=== PATIENT | male | born 1980 | race Caucasian/White ===

== ENCOUNTER 2021-12-14 22:41 | Inpatient (IN) | payer SELFPAY ==
[2021-12-14] MEDS ORDERED: ONDANSETRON 4 MG/2 ML VIAL ONE (23:36)
[2021-12-14] MEDS ORDERED: NA CHLORIDE 0.9% 500 ML ONE (23:37)
[2021-12-14] MEDS ORDERED: NA CHLORIDE 0.9% 2,000 ML ONE (23:37)
[2021-12-14] MEDS ORDERED: NA CHLORIDE 0.9% 250 ML ONE (23:37)
[2021-12-14] MEDS ORDERED: PANTOPRAZOLE 40 MG INJ ONE (23:37)
[2021-12-14] MEDS ORDERED: OCTREOTIDE ACETATE 100 MCG/ML ONE (23:38)
[2021-12-14] MEDS ORDERED: OCTREOTIDE ACETATE 500 MCG/ML ONE (23:40)
[2021-12-14 23:56] LABS: Protime INR 1.36
[2021-12-14 23:59] LABS: Absolute Lymphocytes (CBC) 1.4 K/uL (0.7-4.9); Hematocrit 36.1 % (39.6-49.0); Lymphocytes % 15.8 % (15.3-44.8); MCV 93.8 fL (80-100); MPV 12.2 fL (7.6-11.3); RBC Red Blood Cell Count 3.85 M/uL (4.33-5.43)
[2021-12-15 00:07] LABS: Albumin 3.3 g/dL (3.4-5.0); Bilirubin Direct 2.1 mg/dL (0-0.2); Bilirubin Total 3.1 mg/dL (0.2-1.0); Magnesium 2.3 mg/dL (1.8-2.4); Potassium 4.3 mmol/L (3.5-5.1); Protein, Total 7.2 g/dL (6.4-8.2); Troponin High Sensitivity 11.7 pg/mL (<58.9)
[2021-12-15 01:00] LABS: Basophilic Stippling 1+; Blood Morphology Comment NOTED (NOT SEEN); Polychromasia 1+; White Blood Cell Scan OK (OK)
[2021-12-15 01:01] LABS: Platelet Estimate DECR
--- NOTE | 2021-12-15 01:09 | ER ---
Nurse's Notes [facility] Name: Adrian aRngel Age: 41 yrs Sex: Male : 1980 Arrival Date: 12/14/2021 Time: 22:44 Bed 7 Private MD: Diagnosis: GI Bleed/ Gastrointestinal hemorrhage, unspecified;Hematemesis;Alcohol abuse with intoxication Presentation: 12/14 22:54 Chief complaint: Patient states: I started to vomiting at my house and I noted some ll3 blood, states "I'm a drinker", denies nausea, states started vomiting from coughing, denies pain at this time, states drinks several beers and mixed drinks everyday. Coronavirus screen: Vaccine status: Patient reports being unvaccinated. Ebola Screen: No symptoms or risks identified at this time. Initial Sepsis Screen: Does the patient meet any 2 criteria? HR > 90 bpm. No. Patient's initial sepsis screen is negative. Does the patient have a suspected source of infection? No. Patient's initial sepsis screen is negative. Risk Assessment: Do you want to hurt yourself or someone else? Patient reports no desire to harm self or others. Onset of symptoms was December 14, 2021 at 19:00. 22:54 Method Of Arrival: Ambulatory ll3 22:54 Acuity: JEANETH 3 ll3 Triage Assessment: 22:58 General: Appears comfortable, Behavior is calm, cooperative. Pain: Denies pain. EENT: ll3 Reports States throat was sore after vomiting, denies pain at this time. Neuro: Level of Consciousness is awake, alert, obeys commands, Oriented to person, place, time, situation. GI: Reports vomiting, Patient currently denies nausea. Derm: Skin is pink, warm \\T\\ dry. Historical: - Allergies: 22:58 No Known Allergies; ll3 - Home Meds: 22:58 None [Active]; ll3 - PMHx: 22:58 None; ll3 - PSHx: 22:58 None; ll3 - Immunization history:: Client reports having NOT received the Covid vaccine. - Social history:: Smoking status: Patient reports the use of cigarette tobacco products, 5 per day. Screenin:27 Abuse screen: Denies threats or abuse. Denies injuries from another. Nutritional ha1 screening: No deficits noted. Tuberculosis screening: No symptoms or risk factors identified. Fall Risk None identified. Assessment: 23:15 General: Appears uncomfortable, Behavior is calm, cooperative. Pain: Denies pain. ha1 Neuro: Oriented to person, place, time, situation, Gait is steady. Cardiovascular: Patient's skin is warm and dry. Rhythm is sinus tachycardia. Respiratory: Airway is patent Trachea midline Respiratory effort is even, unlabored, Respiratory pattern is regular, symmetrical. GI: Abdomen is flat, non-distended, Bowel sounds present X 4 quads. Reports vomiting red blood. : No signs and/or symptoms were reported regarding the genitourinary system. Derm: Skin is pink, warm \\T\\ dry. Musculoskeletal: Circulation, motion, and sensation intact. Range of motion: intact in all extremities. 12/15 00:15 Reassessment: Patient and/or family updated on plan of care and expected duration. Pain ha1 level reassessed. Patient is alert, oriented x 3, equal unlabored respirations, skin warm/dry/pink. 01:10 Reassessment: Patient and/or family updated on plan of care and expected duration. Pain ha1 level reassessed. Patient is alert, oriented x 3, equal unlabored respirations, skin warm/dry/pink. 02:29 Reassessment: Patient and/or family updated on plan of care and expected duration. Pain ha1 level reassessed. Patient is alert, oriented x 3, equal unlabored respirations, skin warm/dry/pink. Patient denies pain at this time. 02:52 General: pt reports nausea has improved. no complaints or concerns at thing time . as6 Vital Signs: 12/14 22:54 BP 138 / 104; Pulse 140; Resp 19; Temp 99.0(O); Pulse Ox 99% on R/A; Weight 92.99 kg ll3 (R); Height 6 ft. 1 in. (185.42 cm) (R); Pain 0/10; 23:15 BP 138 / 104; Pulse 113; Resp 20; Pulse Ox 100% on R/A; ha1 12/15 01:14 BP 157 / 101; Pulse 109; Resp 19 S; Pulse Ox 100% on R/A; as6 02:00 BP 155 / 95; Pulse 120; Resp 18 S; Pulse Ox 99% on R/A; ha1 02:53 BP 141 / 91; Pulse 116; Resp 19 S; Pulse Ox 99% on R/A; as6 12/14 22:54 Body Mass Index 27.05 (92.99 kg, 185.42 cm) ll3 ED Course: 12/14 22:44 Patient arrived in ED. ag3 22:58 Triage completed. ll3 22:58 Arm band placed on Patient placed in an exam room, on a stretcher, on pulse oximetry. ll3 23:00 Micah Infante PA is PHCP. cp 23:00 Esthela Hooper MD is Attending Physician. cp 23:15 Inserted saline lock: 20 gauge in right antecubital area, using aseptic technique. ha1 Blood collected. 23:18 Sherman Strong, EFE is Primary Nurse. as6 23:30 Inserted saline lock: 20 gauge in left antecubital area, using aseptic technique. ha1 12/15 01:08 Denny Neal MD is Hospitalizing Provider. cp 02:52 Placed in gown. Bed in low position. Call light in reach. Side rails up X 1. as6 03:33 No provider procedures requiring assistance completed. Patient admitted, IV remains in ha1 place. 07:41 Primary Nurse role handed off by Sherman Strong, EFE bp 07:41 Kiet Zepeda, EFE is Primary Nurse. bp Administered Medications: 00:17 Drug: Octreotide 50 mcg Route: IV; Rate: calculated rate; Site: left antecubital; ha1 07:40 Follow up: IV Status: Completed infusion bp 00:17 Drug: Zofran (Ondansetron) 4 mg Route: IVP; Site: right antecubital; ha1 01:30 Follow up: Response: No adverse reaction ha1 00:17 Drug: ProTONIX (pantoprazole) 8 mg/hr Route: IV; Rate: 25 ml/hr; Site: right ha1 antecubital; 07:39 Follow up: IV Status: Infusion continued upon admission bp 00:17 Drug: ProTONIX (pantoprazole) 40 mg Route: IVP; Site: right antecubital; ha1 07:39 Follow up: Response: No adverse reaction bp 00:18 Drug: NS 0.9% 1000 ml Route: IV; Rate: 1 bolus; Site: right antecubital; ha1 07:41 Follow up: IV Status: Completed infusion; IV Intake: 1000ml bp 00:18 Drug: NS 0.9% 1000 ml Route: IV; Rate: 1 bolus; Site: left antecubital; ha1 03:37 Follow up: Response: No adverse reaction; IV Status: Completed infusion; IV Intake: ha1 1000ml 00:18 Drug: Octreotide Infusion (50 mcg/hr) - (Octreotide 500 mcg, NS 0.9% 500 ml) Route: IV; ha1 Rate: 50 ml/hr; Site: left antecubital; 07:40 Follow up: IV Status: Infusion continued upon admission bp Medication: 03:36 VIS not applicable for this client. ha1 Intake: 03:37 IV: 1000ml; Total: 1000ml. ha1 07:41 IV: 1000ml; Total: 2000ml. bp Outcome: 01:09 Decision to Hospitalize by Provider. cp 03:35 Admitted to ICU ha1 03:35 Condition: stable 03:35 Instructed on the need for admit. 10:20 Patient left the ED. iw Signatures: Dariana Antoine RN RN iw Micah Infante PA PA cp Kiet Zepeda, RN RN Cora Richard Ashby, RN RN as6 Brown Miranda RN RN 3 Aleisha Lambert RN RN 1
--- NOTE | 2021-12-15 01:10 | EDPHYS ---
Physician Documentation [facility] Name: Adrian Rangel Age: 41 yrs Sex: Male : 1980 Arrival Date: 12/14/2021 Time: 22:44 Bed 7 Private MD: ED Physician Esthela Hooper HPI: 12/14 23:14 This 41 yrs old Male presents to ER via Ambulatory with complaints of Vomiting. cp 23:14 The patient presents to the emergency department with vomiting, that is continuous, cp described as bright red blood. Onset: The symptoms/episode began/occurred about 1900. Possible causes: daily ETOH use. 23:14 Associated signs and symptoms: Pertinent positives: GI bleeding, nausea, vomiting, cp Pertinent negatives: abdominal pain, constipation, diarrhea, fever. 23:14 Severity of symptoms: in the emergency department the symptoms are unchanged despite cp home interventions. Historical: - Allergies: 22:58 No Known Allergies; ll3 - Home Meds: 22:58 None [Active]; ll3 - PMHx: 22:58 None; ll3 - PSHx: 22:58 None; ll3 - Immunization history:: Client reports having NOT received the Covid vaccine. - Social history:: Smoking status: Patient reports the use of cigarette tobacco products, 5 per day. ROS: 23:20 Constitutional: Negative for body aches, chills, fever, poor PO intake. cp 23:20 Cardiovascular: Negative for chest pain, edema, palpitations. cp 23:20 Respiratory: Negative for cough, shortness of breath, wheezing. 23:20 Eyes: Negative for injury, pain, redness, and discharge. cp 23:20 ENT: Negative for drainage from ear(s), ear pain, sore throat, difficulty swallowing, difficulty handling secretions. 23:20 Abdomen/GI: Positive for hematemesis, Negative for abdominal pain. 23:20 : Negative for urinary symptoms. 23:20 Neuro: Negative for altered mental status, dizziness, headache, loss of consciousness, syncope, weakness. 23:20 All other systems are negative. cp Exam: 23:20 Constitutional: The patient appears in no acute distress, alert, awake, cp non-diaphoretic, non-toxic, well developed, well nourished. 23:20 Head/Face: Normocephalic, atraumatic. cp 23:20 Eyes: Periorbital structures: appear normal, Conjunctiva: normal, no exudate, no injection, Sclera: no appreciated abnormality, Lids and lashes: appear normal, bilaterally. 23:20 ENT: External ear(s): are unremarkable, Nose: is normal, Mouth: Lips: moist, Oral mucosa: pink and intact, moist, Posterior pharynx: Airway: no evidence of obstruction, patent, swelling, is not appreciated, erythema, is not appreciated, exudate, is not appreciated. 23:20 Neck: ROM/movement: is normal, is supple, without pain, no range of motions limitations. 23:20 Chest/axilla: Inspection: normal. 23:20 Cardiovascular: Rate: tachycardic, Rhythm: regular, Edema: is not appreciated, JVD: is not appreciated. 23:20 Respiratory: the patient does not display signs of respiratory distress, Respirations: normal, no use of accessory muscles, no retractions, labored breathing, is not present, Breath sounds: are clear throughout, no decreased breath sounds, no stridor, no wheezing. 23:20 Abdomen/GI: Inspection: abdomen appears normal, Bowel sounds: active, all quadrants, Palpation: abdomen is soft and non-tender, in all quadrants, Rectal exam: Stool: brown, guaiac negative. 23:20 Back: pain, is absent, ROM is normal. 23:20 Neuro: Orientation: to person, place \T\ time. Mentation: is normal, Cerebellar function: is grossly normal, Motor: moves all fours, strength is normal, Sensation: is normal. 23:47 ECG was reviewed by the Attending Physician. cp Vital Signs: 22:54 BP 138 / 104; Pulse 140; Resp 19; Temp 99.0(O); Pulse Ox 99% on R/A; Weight 92.99 kg ll3 (R); Height 6 ft. 1 in. (185.42 cm) (R); Pain 0/10; 23:15 BP 138 / 104; Pulse 113; Resp 20; Pulse Ox 100% on R/A; ha1 10/12 01:14 BP 157 / 101; Pulse 109; Resp 19 S; Pulse Ox 100% on R/A; as6 02:00 BP 155 / 95; Pulse 120; Resp 18 S; Pulse Ox 99% on R/A; ha1 02:53 BP 141 / 91; Pulse 116; Resp 19 S; Pulse Ox 99% on R/A; as6 12/14 22:54 Body Mass Index 27.05 (92.99 kg, 185.42 cm) ll3 MDM: 12/14 23:01 Patient medically screened. cp 12/15 00:45 Data reviewed: vital signs, nurses notes, lab test result(s), EKG, radiologic studies, cp plain films, I have discussed the patient's presentation/case with the attending Emergency Department Physician; and as a result, I will admit patient. 00:45 Test interpretation: by ED physician or midlevel provider: ECG, plain radiologic cp studies. Counseling: I had a detailed discussion with the patient and/or guardian regarding: the historical points, exam findings, and any diagnostic results supporting the discharge/admit diagnosis, lab results, radiology results, the need for further work-up and treatment in the hospital. Response to treatment: the patient's symptoms have markedly improved after treatment. Physician consultation: Hossein ROWAN was contacted at 00:45, regarding admission. 00:47 Physician consultation: Damian Palomo MD was called at 00:47, regarding consult, cp patient's condition, left msg on voicemail. 12/14 23:11 Order name: Basic Metabolic Panel cp 12/14 23:11 Order name: CBC with Diff cp 12/14 23:11 Order name: LFT's cp 12/14 23:11 Order name: Magnesium cp 12/14 23:11 Order name: PT-INR cp 12/14 23:11 Order name: Troponin HS cp 12/14 23:11 Order name: Ptt, Activated cp 12/14 23:56 Order name: Protime (+INR); Complete Time: 00:06 EDMS 12/15 00:07 Interpretation: Abnormal: PT 15.1. cp 12/14 23:56 Order name: PTT, Activated Partial Thromb; Complete Time: 00:06 EDMS 12/15 00:01 Order name: CBC with Automated Diff; Complete Time: 01:35 EDMS 12/15 00:07 Interpretation: Normal except: RBC 3.85; HGB 12.2; HCT 36.1; PLT 62; MPV 12.2. cp 12/15 00:06 Order name: ETOH Level cp 12/15 00:08 Order name: Basic Metabolic Panel; Complete Time: 00:41 EDMS 12/15 00:41 Interpretation: Normal except: GLUC 139. cp 12/15 00:08 Order name: Liver (Hepatic) Function; Complete Time: 00:41 EDMS 12/15 00:41 Interpretation: Normal except: AST 197; ALK 196; BILIT 3.1; BILID 2.1; ALB 3.3; GLOB cp 3.9; A/G 0.8. 10 00:08 Order name: Troponin High Sensitivity; Complete Time: 00:41 EDMS 12/14 23:11 Order name: XRAY Chest (1 view) cp 12/15 00:08 Order name: Magnesium; Complete Time: 00:41 EDMS 12/15 00:34 Order name: Alcohol Serum/Plasma; Complete Time: 00:41 EDMS 12/15 00:43 Interpretation: ETOH 141; Reviewed. cp 12/15 00:42 Order name: CT Abd/Pelvis - IV Contrast Only cp 12/15 01:01 Order name: CBC Smear Scan; Complete Time: 01:35 EDMS 12/15 01:25 Order name: SARS RAPID ha1 12/15 02:15 Order name: SARS-COV-2 Antigen Rapid; Complete Time: 02:58 EDMS 12/15 02:57 Order name: CT; Complete Time: 02:58 EDMS 12/15 05:17 Order name: Protime (+INR); Complete Time: 05:29 EDMS 12/15 05:18 Order name: CBC with Automated Diff; Complete Time: 05:29 EDMS 12/15 05:37 Order name: Comprehensive Metabolic Panel; Complete Time: 07:10 EDMS 12/15 05:37 Order name: Lipid Profile; Complete Time: 07:10 EDMS 12/15 05:37 Order name: Lipase; Complete Time: 07:10 EDMS 12/14 23:11 Order name: EKG; Complete Time: 23:12 12/14 23:11 Order name: Cardiac monitoring; Complete Time: 23:41 12/14 23:11 Order name: EKG - Nurse/Tech; Complete Time: 23:41 12/14 23:11 Order name: IV Saline Lock; Complete Time: 23:29 12/14 23:11 Order name: Labs collected and sent; Complete Time: 23:29 12/14 23:11 Order name: O2 Per Protocol; Complete Time: 23:29 cp 12/14 23:11 Order name: O2 Sat Monitoring; Complete Time: 23:29 cp 12/15 01:36 Order name: NPO; Complete Time: 01:43 la1 EC/11 23:47 Rate is 130 beats/min. Rhythm is regular. CA interval is normal. QRS interval is cp normal. QT interval is normal. T waves are Inverted in leads III, aVR. Interpreted by me. Reviewed by me. Administered Medications: 12/15 00:17 Drug: Octreotide 50 mcg Route: IV; Rate: calculated rate; Site: left antecubital; ha1 07:40 Follow up: IV Status: Completed infusion bp 00:17 Drug: Zofran (Ondansetron) 4 mg Route: IVP; Site: right antecubital; ha1 01:30 Follow up: Response: No adverse reaction ha1 00:17 Drug: ProTONIX (pantoprazole) 8 mg/hr Route: IV; Rate: 25 ml/hr; Site: right ha1 antecubital; 07:39 Follow up: IV Status: Infusion continued upon admission bp 00:17 Drug: ProTONIX (pantoprazole) 40 mg Route: IVP; Site: right antecubital; ha1 07:39 Follow up: Response: No adverse reaction bp 00:18 Drug: NS 0.9% 1000 ml Route: IV; Rate: 1 bolus; Site: right antecubital; ha1 07:41 Follow up: IV Status: Completed infusion; IV Intake: 1000ml bp 00:18 Drug: NS 0.9% 1000 ml Route: IV; Rate: 1 bolus; Site: left antecubital; ha1 03:37 Follow up: Response: No adverse reaction; IV Status: Completed infusion; IV Intake: ha1 1000ml 00:18 Drug: Octreotide Infusion (50 mcg/hr) - (Octreotide 500 mcg, NS 0.9% 500 ml) Route: IV; ha1 Rate: 50 ml/hr; Site: left antecubital; 07:40 Follow up: IV Status: Infusion continued upon admission bp Disposition Summary: 12/15/21 01:09 Hospitalization Ordered Hospitalization Status: Inpatient Admission cp Provider: Denny Neal cp Condition: Stable cp Problem: new cp Symptoms: have improved cp Bed/Room Type: Standard cp Location: Intensive Care Unit(12/15/21 10:06) bd Room Assignment: 7-(12/15/21 10:06) bd Diagnosis - GI Bleed/ Gastrointestinal hemorrhage, unspecified cp - Hematemesis cp - Alcohol abuse with intoxication cp Forms: - Medication Reconciliation Form cp - SBAR form cp Signatures: Dispatcher [employer] EDGinny Cline Martha RN RN mw Hossein Delgado, NEONATAL SOCIAL WORKER-C NEONATAL SOCIAL WORKER-Cla1 Micah Infante PA PA cp Esthela Hooper MD MD sp3 Brown Miranda RN RN ll3 Aleisha Lambert RN RN ha1 Kiet Zepeda RN bp Corrections: (The following items were deleted from the chart) 01:34 01:09 Telemetry/MedSurg (Inpatient) cp la1 01:34 01:09 cp la1 02:25 01:34 Intensive Care Unit la1 mw 02:25 01:34 la1 mw 10:06 02:25 [facility] ER HOLD mw bd 10:06 02:25 ERHOLD- mw bd
[2021-12-15 02:14] LABS: SARS-CoV-2 Antigen Rapid Res Negative (Negative)
--- NOTE | 2021-12-15 02:56 | RAD REPORT ---
EXAM DESCRIPTION: CT - Abdomen Pelvis W Contrast - 12/15/2021 1:18 am CLINICAL HISTORY: hematemesis COMPARISON: <Comparisons> TECHNIQUE: Biphasic, helical CT imaging of the abdomen and pelvis was performed following 100 ml non -ionic IV contrast. No oral contrast administered. All CT scans are performed using dose optimization technique as appropriate and may include automated exposure control or mA/KV adjustment according to patient size. FINDINGS: No suspicious findings in the lung bases. Hepatomegaly is present with a mottled enhancement of the liver parenchyma. Capsule nodularity is pre sent. No portal vein thrombus. Lean is prominent. Granulomatous calcification present in the spleen. No solid mass of the pancreas. Trace amount of stranding and edema seen in the peripancreatic and. Mu lti stone cholelithiasis seen. Gallbladder wall is slightly thickened or edematous. No biliary tree d ilatation. Symmetric renal function is seen with no hydronephrosis or suspicious renal mass. No pyelonephritis o r acute parenchymal process. No bladder abnormalities. No adrenal abnormalities. Distal esophagus is not grossly abnormal. Food, fluid and hemorrhagic material is present filling the lumen of the stomach. A specific gastric mass is not identifiable. No gastric wall pneumatosis confi rmed. Garcia of the duodenum mildly edematous without dilatation. Small bowel loops are not dilated. N o appendicitis findings. Colon wall edema is present. Focal colon mass is not seen. No free air or pneumatosis. Small amount of ascites is present. Numerous varices seen in the upper ab domen. No hernia, mass or bulky lymphadenopathy. No suspicious bony findings. A 6 x 4 centimeter low-density area present right-side at the medial margin of the the gluteal muscul ature. Hematoma is favored. IMPRESSION: Food, fluid and hemorrhagic material are present in the lumen of stomach. Active extrava sation into the lumen of the stomach is not identified. Specific gastric wall mass or varix is not di stinguishable. Hepatomegaly is present with liver capsule nodularity and diffusely mottled enhancement pattern throu ghout the liver parenchyma. Diffuse hepatic parenchymal disease assessment which could be cirrhosis come hepatitis or other diffuse hepatic parenchymal disease. No focal mass confirmed. Mild pancreatitis changes are present. Small amount of ascites. Numerous varices are seen in the abdomen. Multi stone cholelithiasis without biliary dilatation. Mild circumferential wall thickening throughout the colon and duodenum suspected to be edema secondar y to metabolic or electrolyte abnormalities. Infectious or inflammatory colitis are possible.
[2021-12-15] MEDS ORDERED: OCTREOTIDE 500 MCG in NA CHLORIDE 0.9% 500 ML IV SCH (03:13)
[2021-12-15] MEDS ORDERED: PANTOPRAZOLE INJ 80 MG in NA CHLORIDE 0.9% 250 ML IV SCH (03:13)
[2021-12-15] MEDS ORDERED: D5 0.45 NS 1,000 ML IV SCH (03:13)
--- NOTE | 2021-12-15 03:16 | P.HP ---
Certification for Inpatient Patient admitted to: Inpatient With expected LOS: >2 Midnights Patient will require the following post-hospital care: None Practitioner: I am a practitioner with admitting privileges, knowledge of patient current condition, hospital course, and medical plan of care. Services: Services provided to patient in accordance with Admission requirements found in Title 42 Section 412.3 of the Code of Federal Regulations <Hossein Delgado - Last Filed: 12/15/21 03:07> Patient History Date of Service: 12/15/21 Reason for admission: Hematemesis History of Present Illness: 41-year-old male with no known chronic health conditions presents to the emergency department for hematemesis. He reports that he has been a daily drinker since he was a teenager he typically drinks between 2-6 beers today followed by 3 "stiff" whiskey drinks in the evenings. Yesterday evening he had an episode of vomiting, the first 2 times that he threw up it was the stomach contents but after the second time he vomited he began vomiting bright red blood by itself. About 2 hours later he had another episode of vomiting which was a mixture of gastric contents and blood. He denies similar episodes in the past had no known history of liver disease. He was evaluated in the emergency department his labs were significant for initial hemoglobin of 12.2 hematocrit of 36.1 platelets 62 INR 1.36 PT 15 point 1T bili 3.1D bili 2.1 AST 197 ALT 73 alk phos 196 EtOH serum level 141. In the emergency department he was given 3 L of IV fluids and started on a Protonix as well as octreotide infusion. A CT scan was performed of the abdomen pelvis with IV contrast which revealed food, fluid and hemorrhagic material present in the lumen of the stomach. Active extravasation into the lumen of the stomach is not identified. Specific gastric wall mass or varix is not distinguishable. Hepatomegaly is present with liver capsule nodularity and diffusely mild enhancement pattern throughout the liver parenchyma. Diffuse hepatic parenchymal disease assessment which could be cirrhosis, hepatitis or other diffuse hepatic parenchymal disease. No focal mass confirmed. Mild pancreatic changes are present small amount of ascites numerous varices seen in the abdomen. Multi stone cholelithiasis without biliary tree dilatation. Mild circumferential wall thickening throughout the colon and duodenum suspect to be edema secondary to metabolic or electrolyte abnormalities. Infectious or inflammatory colitis are possible. ED provider reached out to GI on-call prior to admission, wishes to admit patient for hematemesis, suspected alcoholic hepatitis/cirrhosis of the liver. 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 - Family History Family History: Reviewed- Non-Contributory - Social History Smoking Status: Current every day smoker Counseled patient to stop smoking for: less than 10 minutes Smoking therapy provided: No (Patient declined) Alcohol use: Yes CD- Drugs: No Caffeine use: Yes Place of Residence: Home <Hossein Delgado - Last Filed: 12/15/21 03:07> Date of Service: 12/15/21 <Denny Neal - Last Filed: 12/15/21 14:09> Review of Systems 10-point ROS is otherwise unremarkable Gastrointestinal: Nausea, Vomiting, Hematochezia, As per HPI <Hossein Delgado - Last Filed: 12/15/21 03:07> Physical Examination - Physical Exam General: Alert, In no apparent distress, Oriented x3 HEENT: Atraumatic, PERRLA, Mucous membr. moist/pink, EOMI, Scleral icterus Neck: Supple, 2+ carotid pulse no bruit, No LAD, Without JVD or thyroid abnormality Respiratory: Clear to auscultation bilaterally, Normal air movement Cardiovascular: Regular rate/rhythm, Normal S1 S2 Gastrointestinal: Normal bowel sounds, Soft and benign, No tenderness, No masses, No rebound, No guarding Musculoskeletal: No tenderness Integumentary: No rashes Neurological: Normal speech, Normal strength at 5/5 x4 extr, Normal tone, Normal affect - Studies Laboratory Data (last 24 hrs) 12/14/21 23:25: PT 15.1 H, INR 1.36, APTT 36.4 12/14/21 23:25: WBC 9.10, Hgb 12.2 L, Hct 36.1 L, Plt Count 62 L 12/14/21 23:25: Sodium 137, Potassium 4.3, BUN 17, Creatinine 0.74, Glucose 139 H, Magnesium 2.3, Total Bilirubin 3.1 H, AST 197 H, ALT 73, Alkaline Phosphatase 196 H <Hossein Delgado - Last Filed: 12/15/21 03:07> - Studies Laboratory Data (last 24 hrs) 12/14/21 23:25: PT 15.1 H, INR 1.36, APTT 36.4 12/14/21 23:25: WBC 9.10, Hgb 12.2 L, Hct 36.1 L, Plt Count 62 L 12/14/21 23:25: Sodium 137, Potassium 4.3, BUN 17, Creatinine 0.74, Glucose 139 H, Magnesium 2.3, Total Bilirubin 3.1 H, AST 197 H, ALT 73, Alkaline Phosphatase 196 H <Denny Neal - Last Filed: 12/15/21 14:09> Assessment and Plan - Plan Assessment: Hematemesis Suspected alcoholic hepatitis/alcoholic cirrhosis of liver Thrombocytopenia related to above Alcohol use disorder Plan: Hematemesis: N.p.o. differentials include Herlinda-Frey tear, esophageal/gastric varices. Patient with 2 episodes of vomiting both prior to presentation emergency department no further vomiting noted thus far. Patient is normotensive but remains mildly tachycardic with heart rate around 105-110. GI consulted, patient is on Protonix/octreotide drips. Initial hemoglobin 12.2 patient did receive 3 L of IV fluids in the emergency department anticipate some drop in hemoglobin. We will transfuse to maintain hemoglobin greater than 8 as needed. Suspected alcoholic hepatitis/alcoholic cirrhosis of liver: Patient with no previous diagnosis of alcoholic hepatitis or cirrhosis, he has scleral icterus, T bili 3.1, thrombocytopenia as well as elevated AST greater than ALT. Maddrey's discriminant function is 15.1. Acute hepatitis panel also to be sent. Patient counseled extensively on his need for alcohol cessation. Appreciate further input from gastroenterology Thrombocytopenia related to above: SCDs for DVT prophylaxis, monitor platelet c ounts with daily CBC. Alcohol use disorder: Patient was counseled extensively on need for alcohol cessation. His last drink was yesterday afternoon is been a daily drinker since he was a teenager he is at high risk for alcohol withdrawals. Will monitor for signs of alcohol withdrawal closely provide medications as needed. DVT PPX: SCD Code status: Full Discharge Plan: Home Plan to discharge in: 72 Hours - Advance Directives Does patient have a Living Will: No Does patient have a Durable POA for Healthcare: No - Code Status/Comfort Care Code Status Assessed: Yes (Full code) Critical Care: No Time Spent Managing Pts Care (In Minutes): 70 <Hossein Delgado - Last Filed: 12/15/21 03:07> Physician Review: Patient Assessed, Agree with Above Assessment and Plan <Denny Neal - Last Filed: 12/15/21 14:09>
[2021-12-15 05:04] LABS: Absolute Lymphocytes (CBC) 0.9 K/uL (0.7-4.9); Hematocrit 30.8 % (39.6-49.0); MCV 95.9 fL (80-100); MPV 11.9 fL (7.6-11.3); RBC Red Blood Cell Count 3.21 M/uL (4.33-5.43)
[2021-12-15] MEDS ORDERED: D5 0.45 NS 1,000 ML IV ONE (05:15)
[2021-12-15 05:17] LABS: Protime INR 1.43
[2021-12-15] MEDS ORDERED: ONDANSETRON 4 MG/2 ML VIAL IV PRN (05:30)
[2021-12-15 05:32] LABS: Albumin 2.8 g/dL (3.4-5.0); Bilirubin Total 2.9 mg/dL (0.2-1.0); Potassium 4.7 mmol/L (3.5-5.1); Protein, Total 6.1 g/dL (6.4-8.2)
[2021-12-15] MEDS ORDERED: CEFTRIAXONE 2000 MG/VIAL ONE (08:59)
[2021-12-15] MEDS ORDERED: NA CHLORIDE 0.9% 100 ML IV ONE (08:59)
[2021-12-15] MEDS ORDERED: CEFTRIAXONE 1000 MG/VIAL ONE (08:59)
[2021-12-15] MEDS ORDERED: INFLUENZA VACCINE (for 6+ mo) 0.5 ML DOSE IMVAC ONE (09:00)
[2021-12-15] MEDS: CEFTRIAXONE 2,000 MG in NA CHLORIDE 0.9% 100 ML IV SCH (09:00)
[2021-12-15] MEDS: FOLIC ACID 1 MG, MULTIVITAMINS INJ 10 ML, THIAMINE HCL 100 MG in NA CHLORIDE 0.9% 1,000 ML IV SCH (09:00)
[2021-12-15] MEDS ORDERED: LORazepam 2 MG/ML VIAL ONE (09:09)
[2021-12-15] MEDS: OCTREOTIDE 500 MCG in NA CHLORIDE 0.9% 500 ML IV SCH ×2 (10:00→14:54)
[2021-12-15] MEDS: PANTOPRAZOLE INJ 80 MG in NA CHLORIDE 0.9% 250 ML IV SCH ×2 (10:00→17:26)
[2021-12-15] MEDS ORDERED: Ringers Lactate 1,000 ML IV ONE (10:20)
[2021-12-15] MEDS ORDERED: propofoL 200 MG/20 ML VIAL IV ONE ×3 (11:34→12:19)
[2021-12-15] MEDS ORDERED: ONDANSETRON 4 MG/2 ML VIAL ONE ×2 (11:59→12:48)
[2021-12-15] MEDS ORDERED: EPINEPHRINE/PF 1 MG/ML AMP ONE (12:00)
--- NOTE | 2021-12-15 12:33 | ENDO RPT ---
[address], [address] EGD PROCEDURE REPORT EXAM DATE: 12/15/2021 PATIENT NAME: Adrain Rangel MR#: [id number] BIRTHDATE: 1980 ATTENDING: Damian Palomo Dr STATUS: inpatient - [facility] COORDINATOR: Yazmin GUADALUPE, Kayley Hernandez RN, and Verna Theodore INDICATIONS: The patient is a 41 yr old Male here for an EGD due to hematemesis, upper G.I. bleeding, melenic bleeding, and anemia PROCEDURE PERFORMED: EGD with banding MEDICATIONS: Per Anesthesia. TOPICAL ANESTHETIC: none CONSENT: The patient understands the risks and benefits of the procedure and understands that these risks include, but are not limited to: sedation, allergic reaction, infection, perforation and/or bleeding. Alternative means of evaluation and treatment include, among others: physical exam, x-rays, and/or surgical intervention. The patient elects to proceed with this endoscopic procedure. DESCRIPTION OF PROCEDURE: During intra-op preparation period all mechanical medical equipment was checked for proper function. Hand hygiene and appropriate measures for infection prevention was taken. Procedure, possible complications, and alternatives including but not limited to the possibility of bleeding, perforation, tear, infection, sepsis, need for surgery, need for blood transfusion, and anesthesia related complications were explained to the patient. After the risks, benefits and alternatives of the procedure were thoroughly explained, Informed consent was verified, confirmed and timeout was successfully executed by the treatment team. The patient was placed in the left lateral position. The patient was anesthetized with topical anesthesia. Through the anesthetized oropharyngeal area, the scope was passed without any difficulty. The [id number] ([id number]) endoscope was introduced through the mouth and advanced to the second portion of the duodenum. Retroflexed views revealed no abnormalities. The gastroscope was then slowly withdrawn and removed. Two columns of grade II varices were found in the lower esophagus. Esophageal banding was performed X3. Large of amount of congelled bright red blood clot was found in the body of the stomach. Nodular mucosa was found in the body of the stomach. ADVERSE EVENTS: There were no complications. IMPRESSIONS: 1. Two columns of grade II varices in the lower esophagus, s/p banding X3 stomach 3. Nodular mucosa in the body of the stomach RECOMMENDATIONS: 1. continue IV Octreotide 3. Cefriaxone IV 4. goal SBP < 110 REPEAT EXAM: Return in 3 week(s) for EGD. Damian Palomo Dr eSigned: Damian Palomo Dr 12/15/2021 12:32 PM cc: CPT CODES: ICD9 CODES: PATIENT NAME: Adrian Rangel MR#: [id number]
--- NOTE | 2021-12-15 13:38 | RAD REPORT ---
EXAM DESCRIPTION: XR Chest, 1 View CLINICAL HISTORY: VOMITING TECHNIQUE: Frontal view of the chest. COMPARISON: No relevant prior studies available. FINDINGS: Lungs: Unremarkable. No consolidation. Pleural space: Unremarkable. No pneumothorax. Heart: Unremarkable. No cardiomegaly. Mediastinum: Unremarkable. Bones/joints: Unremarkable. IMPRESSION: No acute disease. Electronically signed by: Luciana Martinez MD 12/15/2021 12:12 AM CDT Due to temporary technical issues with the PACS/Fluency reporting system, reports are being signed by the in house radiologists without review as a courtesy to insure prompt reporting. The interpreting radiologist is fully responsible for the content of the report.
--- NOTE | 2021-12-15 14:37 | CON ---
Date of Consultation: 12/15/2021 Reason For Consultation: Hematemesis. History Of Present Illness: Patient is a 41-year-old alcoholic cirrhotic, who presented to hospital due to hematemesis. Patient says he has never had it before. Patient also noted some black stools today. He was brought to the emergency room. Alcohol level was elevated at 141 with AST of 197, ALT of 73, indicative of alcohol ingestion. Total bilirubin is 3.1, direct bilirubin 2.1. Hemoglobin was 12.2, hematocrit 36.1, platelet count 62. Patient has a first episode of hematemesis and first episode of melena with nausea, vomiting. States that he was having nausea, vomiting, retching, and dry heaving before he started to see the blood per oral and later on he saw some black stools as well. He denies any abdominal pain, fevers, chills, night sweats, hematochezia. He does have nausea, vomiting, and some black stools. Past Medical History: Significant for alcoholic cirrhosis. He denies any prior ascites or hepatic encephalopathy. Mother at the bedside and states he has not had either as well. Medications At Home: It appears none. Allergies: NKDA. Social History: He is . 2 kids. He has occasional tobacco. Positive for alcohol. He says he drinks at least a 6-pack per day and then has 3 bourbon and cokes at night. 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 Family History: Father of alcoholism complications and mother is alive with diabetes, hypertension, hyperlipidemia. Review of Systems: Patient has hematemesis, nausea, vomiting, melena. He denies any abdominal pain, fevers, chills, night sweats, hematochezia, hemoptysis, hematuria, dysuria, polydipsia, chest pain, shortness of breath, seizure, syncope, muscle aches, joint aches, backaches, chest pain. He does have some mood disorder, somewhat depressed currently, knowing that he needs to stop alcohol, reluctant to it appears. Physical Examination: Vital Signs: Patient is 6 feet 1 inch, 205 pounds, BMI of 27 kg/sq m. He has a temperature of 97.9 degrees Fahrenheit, pulse 100, respirations 18, blood pressure 130/82, O2 saturation 95%. General: He is a well-nourished, well-developed male, lying in bed, in no acute distress. HEENT: Normocephalic, atraumatic. Anicteric. Pupils equal, round, and reactive to light. Extraocular movements are intact. Oropharynx is clear. Neck: Supple. No masses. Respirations: Clear to auscultation bilaterally. Cardiac: Regular rate and rhythm. Gastrointestinal: Positive bowel sounds. Soft, nontender, nondistended. No hepatosplenomegaly detected. No peritoneal or [place] sign. No rebound, no guarding. Extremities: No clubbing, cyanosis, or edema. 2+ pulses. Neuro: Alert and oriented x3. Grossly nonfocal. Able to move all extremities well. Laboratory Data: Patient has a white count of 5.9, down from 9.1 yesterday; hemoglobin of 10.2 down from 12.2 yesterday. He is anemic. He has a platelet count of 45, down from 65. He has PT of 15.9, INR of 1.43, PTT of 36.4. Sodium 140, potassium 4.7, chloride 108, bicarb 25, BUN of 16, creatinine of 0.6, glucose 139, calcium 7.9. Total bilirubin 2.9, direct bilirubin 2.1, AST of 161, ALT of 62. Yesterday, he had AST of 197, ALT of 73. Alkaline phosphatase is 157. Troponin I is normal 11.7. Total protein 6.1, albumin 2.8. Globulin 3.3, triglyceride 142, cholesterol 147, LDL of 94, HDL 25, lipase 99. Plasma alcohol level is 141. Serology, hepatitis A, B, and C are pending at this time. COVID-[address] of abdomen and pelvis revealed patient has a hematoma of 6 cm in the right gluteal musculature. There was food, fluid, and hemorrhagic material in the lumen of stomach. Patient had hepatomegaly and signs of probable cirrhosis. Patient had mild pancreatitis changes as well. Small amount of ascites and numerous varices seen in the abdomen. He had multi stones, cholelithiasis without biliary dilatation. Mild circumferential wall thickening throughout the colon and duodenum, suspect to be edema secondary to metabolic electrolyte abnormalities, infectious disease or inflammatory colitis are possible. Impression: 1. Hematemesis, alcoholic with possible varices or other. It could be secondary to progression of Herlinda-Frey tear. Patient had nausea, vomiting, and retching prior to the start of the hematemesis. No melena. He denies abdominal pain, fevers, chills, night sweats, hematochezia. Hemoglobin is down from 12.2 to 10.2 overnight. 2. He has a thrombocytopenia secondary to alcoholic cirrhosis. 3. Alcoholic cirrhosis by labs including platelets of 45, and INR out of 1.7. It looks like 1.5 and imaging which shows probable cirrhosis as well. 4. History of alcohol abuse. 5. Right torn rotator cuff in the past. Recommendations: 1. Proceed with EGD. 2. Continue p.r.n. antiemetics. 3. Serial H and H, and transfuse p.r.n. Goal hemoglobin is 7-8 range. 4. Continue IV Octreotide & Protonix. Will add Ceftriaxone IV (varices noted on CT) 5. DT precautions. 6. P.r.n. beta benzodiazepines. 7. Thiamine and folate supplementation in this alcoholic patient. CR/PHI Voice ID: [id number] Report ID: [id number] PARK
[2021-12-15 14:54] LABS: Hematocrit 27.5 % (39.6-49.0); MCV 94.2 fL (80-100); MPV 11.9 fL (7.6-11.3); RBC Red Blood Cell Count 2.92 M/uL (4.33-5.43)
[2021-12-15] MEDS: LORazepam 2 MG/ML VIAL IV PRN ×3 (14:54→23:29)
[2021-12-15 18:31] LABS: Hematocrit 27.4 % (39.6-49.0)
[2021-12-15] MEDS ORDERED: PROMETHAZINE INJ 25 MG/ML AMP IV PRN (18:32)
[2021-12-15] MEDS ORDERED: PROMETHAZINE INJ 25 MG/ML AMP ONE (18:32)
[2021-12-15 19:38] LABS: MPV 12.9 fL (7.6-11.3)
[2021-12-16] MEDS ORDERED: LORazepam 2 MG/ML VIAL IV ONE ×2 (00:17→01:36)
[2021-12-16] MEDS: ONDANSETRON 4 MG/2 ML VIAL IV SCH ×4 (00:27→18:00)
[2021-12-16 00:37] LABS: Hematocrit 28.1 % (39.6-49.0)
[2021-12-16] MEDS: OCTREOTIDE 500 MCG in NA CHLORIDE 0.9% 500 ML IV SCH ×3 (01:25→22:13)
[2021-12-16] MEDS: LORazepam 2 MG/ML VIAL IV PRN ×5 (01:26→17:50)
[2021-12-16] MEDS ORDERED: FLUMAZENIL 0.1 MG/ML (5 mL VIAL) IV PRN (01:36)
[2021-12-16] MEDS: LORazepam 2 MG/ML VIAL IV SCH ×11 (03:07→22:05)
[2021-12-16] MEDS: PANTOPRAZOLE INJ 80 MG in NA CHLORIDE 0.9% 250 ML IV SCH ×2 (03:19→14:53)
[2021-12-16 04:59] LABS: Absolute Lymphocytes (CBC) 0.9 K/uL (0.7-4.9); Hematocrit 26.6 % (39.6-49.0); Lymphocytes % 14.9 % (15.3-44.8); MPV 12.7 fL (7.6-11.3); RBC Red Blood Cell Count 2.77 M/uL (4.33-5.43)
[2021-12-16 05:09] LABS: Protime INR 1.38
[2021-12-16 05:18] LABS: Albumin 2.6 g/dL (3.4-5.0); Bilirubin Total 2.5 mg/dL (0.2-1.0); Potassium 3.9 mmol/L (3.5-5.1); Protein, Total 5.9 g/dL (6.4-8.2)
--- NOTE | 2021-12-16 07:39 | EKG ---
Test Date: 2021-12-14 Test Time: 23:41:11 Civil Cad Tech: MEASUREMENT RESULTS: Intervals: Rate: 130 [place]: 138 QRSD: 94 QT: 312 QTc: 459 [place]: P: 59 [place]: 138 QRS: 20 T: 26 INTERPRETIVE STATEMENTS: Sinus tachycardia Inferior infarct, age undetermined Abnormal ECG No previous ECG available for comparison Electronically Signed On 12-16-21 07:35:30 CDT by Tomasz Wall
[2021-12-16] MEDS: CEFTRIAXONE 2,000 MG in NA CHLORIDE 0.9% 100 ML IV SCH (07:52)
[2021-12-16] MEDS: FOLIC ACID 1 MG, MULTIVITAMINS INJ 10 ML, THIAMINE HCL 100 MG in NA CHLORIDE 0.9% 1,000 ML IV SCH (08:58)
[2021-12-16] MEDS ORDERED: LORazepam 2 MG/ML VIAL IV PRN (10:00)
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
[2021-12-16] MEDS: DEXMEDETOMIDINE HCL 200 MCG in NA CHLORIDE 0.9% 98 ML IV SCH ×5 (11:44→23:31)
[2021-12-16 12:11] LABS: Hematocrit 26.6 % (39.6-49.0)
--- NOTE | 2021-12-16 12:55 | P.CNS ---
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 - Social History Alcohol use: Yes CD- Drugs: No Caffeine use: Yes Place of Residence: Home Review of Systems is unable to be obtained Physical Examination Temp Pulse Resp BP Pulse Ox 97.9 F 86 26 H 119/77 97 12/16/21 10:42 12/16/21 11:30 12/16/21 11:30 12/16/21 11:30 12/16/21 10:42 General: Unresponsive Respiratory: Clear to auscultation bilaterally, Friction rub Cardiovascular: Regular rate/rhythm, Normal S1 S2 - Problems (1) Cirrhosis Current Visit: Yes Status: Acute Plan: Patient is 41 years of age admitted with with hemoptysis he appears to have a cirrhosis and esophageal varices normal liver function test elevated PT/INR agree with Precedex he seems to be doing better new with thiamine agree with the octreotide Qualifiers: Hepatic cirrhosis type: alcoholic cirrhosis
--- NOTE | 2021-12-16 17:50 | P.PN ---
Subjective Date of Service: 12/16/21 Chief Complaint: Hematemesis, anemia, esophageal varices, EtOH cirrhosis Subjective: Improving (In ICU overnight with hematemesis, probable blood in stomach from before EGD with esoph varices banding yesterday. Hgb stable. VSS. Better with BDZ/nausea meds, o/w belligerent with nausea / DTs.) Review of Systems 10-point ROS is otherwise unremarkable General: Weakness (Improved.) Physical Examination - Vital Signs Temperature: 97.9 F Blood Pressure: 105/76 Pulse: 68 Respirations: 20 Pulse Ox (%): 98 - Physical Exam General: Alert, In no apparent distress (Sleeping on Presidex and Ativan ), Disheveled HEENT: Atraumatic, Normocephalic Neck: Supple Respiratory: Normal air movement Cardiovascular: Normal pulses, Regular rate/rhythm Gastrointestinal: Soft and benign, No tenderness, No rebound, No guarding Neurological: Other (sleeping / sedated) Assessment And Plan - Current Problems (Diagnosis) (1) Hematemesis Current Visit: Yes Status: Acute Comment: Improved. (2) Melena Current Visit: Yes Status: Acute (3) Nausea & vomiting Current Visit: Yes Status: Acute (4) Thrombocytopenia Current Visit: Yes Status: Acute (5) Alcohol abuse Current Visit: Yes Status: Acute (6) Anemia Current Visit: Yes Status: Acute (7) Cirrhosis Current Visit: Yes Status: Acute Qualifiers: Hepatic cirrhosis type: alcoholic cirrhosis - Plan REC: 1) continue IV Octreotide 2) continue IV Ceftriaxone 3) decrease PPI to bid dosing from drip 4) allow ice chips and sips of water 5) DT precautions 6) prn BDZs / Presidex 7) Thiamine and Folate 8) monitor labs Physician Review: Patient Assessed, Agree with Above Assessment and Plan
[2021-12-16 18:12] LABS: Hematocrit 25.5 % (39.6-49.0)
[2021-12-17] MEDS: LORazepam 2 MG/ML VIAL IV SCH ×14 (00:15→23:32)
[2021-12-17 00:46] LABS: Hematocrit 26.9 % (39.6-49.0)
[2021-12-17] MEDS: PANTOPRAZOLE INJ 80 MG in NA CHLORIDE 0.9% 250 ML IV SCH ×3 (01:17→20:40)
[2021-12-17] MEDS: OCTREOTIDE 500 MCG in NA CHLORIDE 0.9% 500 ML IV SCH ×3 (02:00→18:49)
[2021-12-17] MEDS: DEXMEDETOMIDINE HCL 200 MCG in NA CHLORIDE 0.9% 98 ML IV SCH ×3 (02:23→07:25)
[2021-12-17] MEDS: LORazepam 2 MG/ML VIAL IV PRN ×4 (02:30→22:50)
[2021-12-17 04:56] LABS: Absolute Lymphocytes (CBC) 1.2 K/uL (0.7-4.9); Hematocrit 26.6 % (39.6-49.0); Lymphocytes % 25.9 % (15.3-44.8); MCV 98.4 fL (80-100); MPV 11.9 fL (7.6-11.3)
[2021-12-17 04:57] LABS: Protime INR 1.47
[2021-12-17 05:08] LABS: Albumin 2.4 g/dL (3.4-5.0); Bilirubin Total 2.1 mg/dL (0.2-1.0); Potassium 3.7 mmol/L (3.5-5.1); Protein, Total 5.4 g/dL (6.4-8.2)
[2021-12-17] MEDS: ONDANSETRON 4 MG/2 ML VIAL IV SCH ×3 (06:00→12:00)
[2021-12-17] MEDS: NICOTINE 21 MG/PAT TD SCH (07:48)
[2021-12-17] MEDS: CEFTRIAXONE 2,000 MG in NA CHLORIDE 0.9% 100 ML IV SCH (07:48)
[2021-12-17] MEDS: FOLIC ACID 1 MG, MULTIVITAMINS INJ 10 ML, THIAMINE HCL 100 MG in NA CHLORIDE 0.9% 1,000 ML IV SCH (08:15)
[2021-12-17] MEDS ORDERED: FOLIC ACID 1 MG, MULTIVITAMINS INJ 10 ML, THIAMINE HCL 100 MG in NA CHLORIDE 0.9% 1,000 ML IV SCH (09:00)
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
[2021-12-17] MEDS: DEXMEDETOMIDINE HCL 1,000 MCG in NA CHLORIDE 0.9% 490 ML IV SCH ×2 (10:10→22:44)
--- NOTE | 2021-12-17 11:39 | EKG ---
Test Date: 2021-12-17 Test Time: 10:43:09 Artificial Teeth Inspector: JOSE ALBERTO MEASUREMENT RESULTS: Intervals: Rate: 55 [place]: 166 QRSD: 110 QT: 508 QTc: 485 [place]: P: 36 [place]: 166 QRS: 61 T: 26 INTERPRETIVE STATEMENTS: Sinus bradycardia Prolonged QT Abnormal ECG Compared to ECG 12/14/2021 23:41:11 Prolonged QT interval now present Sinus tachycardia no longer present Myocardial infarct finding no longer present Electronically Signed On 12-17-21 11:38:41 CDT by Tomasz Wall
--- NOTE | 2021-12-17 19:22 | P.PN ---
Subjective Date of Service: 12/17/21 Chief Complaint: Hematemesis, anemia, esophageal varices, EtOH cirrhosis Subjective: Improving (No further GI bleeding noted. DTs controlled by Precidex IV drip and Ativan with patient sleeping in ICU now. Hgb stable at 8.4 to 8.9 range over past 36 hours.) Review of Systems 10-point ROS is otherwise unremarkable General: Weakness Neurological: Other (DTs controlled on meds) Physical Examination - Vital Signs Temperature: 97.1 F Blood Pressure: 112/81 Pulse: 61 Respirations: 15 Pulse Ox (%): 97 - Physical Exam General: Disheveled (sedated) HEENT: Atraumatic, Normocephalic Neck: Supple Respiratory: Normal air movement Cardiovascular: Normal pulses Gastrointestinal: Soft and benign, No tenderness, No rebound, No guarding Assessment And Plan - Current Problems (Diagnosis) (1) Hematemesis Current Visit: Yes Status: Acute Comment: Improved. (2) Melena Current Visit: Yes Status: Acute (3) Nausea & vomiting Current Visit: Yes Status: Acute (4) Thrombocytopenia Current Visit: Yes Status: Acute (5) Alcohol abuse Current Visit: Yes Status: Acute (6) Anemia Current Visit: Yes Status: Acute (7) Cirrhosis Current Visit: Yes Status: Acute Qualifiers: Hepatic cirrhosis type: alcoholic cirrhosis - Plan REC: 1) continue IV Octreotide 2) continue IV Ceftriaxone 3) decrease PPI to bid dosing from drip 4) CL diet when alert 5) DT precautions 6) prn BDZs / Presidex 7) Thiamine and Folate 8) monitor labs 9) Precidex, as per pulmonology Physician Review: Patient Assessed, Agree with Above Assessment and Plan
[2021-12-18] MEDS: LORazepam 2 MG/ML VIAL IV SCH ×14 (01:51→23:40)
[2021-12-18 03:04] LABS: HBsAG Nonreactive (Nonreactive)
[2021-12-18] MEDS: OCTREOTIDE 500 MCG in NA CHLORIDE 0.9% 500 ML IV SCH ×3 (04:50→17:18)
[2021-12-18 06:49] LABS: Protime INR 1.46
[2021-12-18 07:03] LABS: Albumin 2.3 g/dL (3.4-5.0); Bilirubin Total 2.3 mg/dL (0.2-1.0); Potassium 3.8 mmol/L (3.5-5.1); Protein, Total 5.5 g/dL (6.4-8.2)
[2021-12-18] MEDS: NICOTINE 21 MG/PAT TD SCH (07:57)
[2021-12-18] MEDS: CEFTRIAXONE 2,000 MG in NA CHLORIDE 0.9% 100 ML IV SCH (07:57)
[2021-12-18] MEDS: PANTOPRAZOLE INJ 80 MG in NA CHLORIDE 0.9% 250 ML IV SCH (08:37)
[2021-12-18] MEDS: FOLIC ACID 1 MG, MULTIVITAMINS INJ 10 ML, THIAMINE HCL 100 MG in NA CHLORIDE 0.9% 1,000 ML IV SCH (09:00)
[2021-12-18] MEDS: DEXMEDETOMIDINE HCL 1,000 MCG in NA CHLORIDE 0.9% 490 ML IV SCH ×2 (09:22→21:37)
[2021-12-18 09:43] LABS: Hematocrit 29.8 % (39.6-49.0); Lymphocytes % 20.3 % (15.3-44.8); MCV 97.5 fL (80-100); RBC Red Blood Cell Count 3.06 M/uL (4.33-5.43)
--- NOTE | 2021-12-18 10:26 | P.PN ---
Subjective Date of Service: 12/18/21 Chief Complaint: Hematemesis, anemia, esophageal varices, EtOH cirrhosis No change in patient's condition he still requiring Precedex and 6 scheduled benzodiazepine also hallucinating combative delirious Review of Systems is unable to be obtained Physical Examination - Vital Signs Temperature: 98 F Blood Pressure: 113/81 Pulse: 60 Respirations: 16 Pulse Ox (%): 99 - Physical Exam General: Unresponsive Assessment And Plan - Current Problems (Diagnosis) (1) Cirrhosis Current Visit: Yes Status: Acute Plan: Patient is 41 years of age admitted with with hemoptysis he appears to have a cirrhosis and esophageal varices he has abnormal liver function tests which are improving Qualifiers: Hepatic cirrhosis type: alcoholic cirrhosis (2) Alcohol withdrawal delirium Current Visit: Yes Status: Acute Plan: Continue with Precedex and benzodiazepine patient is and not eating and drinking will consider PPN continue with supportive treatment Physician Review: Patient Assessed, Agree with Above Assessment and Plan
[2021-12-18] MEDS ORDERED: SODIUM CHLORIDE 0.9% 10ML INJ IV PRN (17:53)
--- NOTE | 2021-12-18 18:07 | P.PN ---
Subjective Date of Service: 12/18/21 Chief Complaint: Hematemesis, anemia, esophageal varices, EtOH cirrhosis Subjective: Improving (Still sedated with Precedex but occasionally belligerent to RNs trying to kick or trap with his legs. He is day 3 without EtOH. Minimal po intake. No GI bleeding. Hgb up from 8-9 range to 9.9 today. Still on IV Octreotide, Protonix, and Ceftriaxone.) Review of Systems 10-point ROS is otherwise unremarkable General: Weakness, Malaise Neurological: Confusion (DTs with Precidex sedation and some Ativan. ) Physical Examination - Vital Signs Temperature: 97.2 F Blood Pressure: 98/69 Pulse: 62 Respirations: 17 Pulse Ox (%): 100 - Physical Exam General: Disheveled (& sedated) HEENT: Atraumatic, Normocephalic Neck: Supple Respiratory: Normal air movement Cardiovascular: Normal pulses Gastrointestinal: Soft and benign, No tenderness, No rebound, No guarding Neurological: Other (sedated with h/o belligerent outbursts when alert ) Assessment And Plan - Current Problems (Diagnosis) (1) Hematemesis Current Visit: Yes Status: Acute Comment: None in 2 days. Hgb increasing to 9.9 today. (2) Melena Current Visit: Yes Status: Acute (3) Nausea & vomiting Current Visit: Yes Status: Acute (4) Thrombocytopenia Current Visit: Yes Status: Acute (5) Alcohol abuse Current Visit: Yes Status: Acute (6) Anemia Current Visit: Yes Status: Acute (7) Cirrhosis Current Visit: Yes Status: Acute Qualifiers: Hepatic cirrhosis type: alcoholic cirrhosis - Plan REC: 1) continue IV Octreotide 2 more days for total of 5 days before attempting to wean off slowly 2) continue IV Ceftriaxone 3) decrease PPI to bid dosing from drip 4) CL diet when alert 5) DT precautions 6) prn BDZs / Presidex 7) Thiamine and Folate 8) monitor labs 9) Precidex, as per pulmonology Physician Review: Patient Assessed, Agree with Above Assessment and Plan
[2021-12-18] MEDS: chlordiazePOXIDE HCl 25 MG CAP PO SCH (20:13)
[2021-12-18] MEDS: PANTOPRAZOLE 40 MG INJ IVP SCH (20:35)
[2021-12-19] MEDS: LORazepam 2 MG/ML VIAL IV SCH ×12 (02:01→23:35)
[2021-12-19] MEDS: OCTREOTIDE 500 MCG in NA CHLORIDE 0.9% 500 ML IV SCH ×3 (02:01→23:31)
[2021-12-19 07:56] LABS: Hematocrit 29.6 % (39.6-49.0); Lymphocytes % 20.9 % (15.3-44.8); MCV 98.9 fL (80-100); MPV 12.7 fL (7.6-11.3); RBC Red Blood Cell Count 2.99 M/uL (4.33-5.43)
[2021-12-19 08:07] LABS: Potassium 3.7 mmol/L (3.5-5.1)
[2021-12-19] MEDS ORDERED: THIAMINE 200 MG/2 ML INJ ONE (08:45)
[2021-12-19] MEDS ORDERED: NA CHLORIDE 0.9% 0 ML ONE (08:45)
[2021-12-19] MEDS: chlordiazePOXIDE HCl 25 MG CAP PO SCH ×3 (08:53→20:27)
[2021-12-19] MEDS ORDERED: NA CHLORIDE 0.9% 100 ML ONE (08:58)
[2021-12-19] MEDS: CEFTRIAXONE 2,000 MG in NA CHLORIDE 0.9% 100 ML IV SCH (08:59)
[2021-12-19] MEDS: PANTOPRAZOLE 40 MG INJ IVP SCH ×2 (09:00→20:27)
[2021-12-19] MEDS: FOLIC ACID 1 MG, MULTIVITAMINS INJ 10 ML, THIAMINE HCL 100 MG in NA CHLORIDE 0.9% 1,000 ML IV SCH (09:01)
--- NOTE | 2021-12-19 09:48 | P.PN ---
Subjective Date of Service: 12/19/21 Chief Complaint: Hematemesis, anemia, esophageal varices, EtOH cirrhosis Subjective: Improving (Sedated, but now weaning off Precidex. Librium 25 mg po tid started yesterday, taking well, less bellligerent when alert now. Not alert enough yet for long enough time to eat yet. No GI bleeding noted for 2 days now since EGD with esophageal banding of varices.) Review of Systems 10-point ROS is otherwise unremarkable General: Weakness, Malaise Physical Examination - Vital Signs Temperature: 97.3 F Blood Pressure: 126/79 Pulse: 62 Respirations: 19 Pulse Ox (%): 96 - Physical Exam General: Disheveled (Sedated) HEENT: Atraumatic, Normocephalic Neck: Supple Cardiovascular: Normal pulses Gastrointestinal: Soft and benign (mild dullnes in flanks with mild distention though improved), No tenderness, No rebound, No guarding Neurological: Other (sedated) Assessment And Plan - Current Problems (Diagnosis) (1) Hematemesis Current Visit: Yes Status: Acute Comment: None in 2 days. Hgb increasing to 9.9 today. (2) Melena Current Visit: Yes Status: Acute (3) Nausea & vomiting Current Visit: Yes Status: Acute (4) Thrombocytopenia Current Visit: Yes Status: Acute (5) Alcohol abuse Current Visit: Yes Status: Acute (6) Anemia Current Visit: Yes Status: Acute (7) Cirrhosis Current Visit: Yes Status: Acute Qualifiers: Hepatic cirrhosis type: alcoholic cirrhosis - Plan REC: 1) continue IV Octreotide 1 more day for total of 5 days before attempting to wean off slowly 2) continue IV Ceftriaxone 3) PPI bid dosing 4) CL diet when alert and advance as tolerated 5) DT precautions 6) Librium started yesterday and continue. Also prn Ativan 7) Thiamine and Folate 8) monitor labs 9) Precidex, as per pulmonology, weaning off today Physician Review: Patient Assessed, Agree with Above Assessment and Plan
[2021-12-19] MEDS ORDERED: POTASSIUM CL SA 10 MEQ TAB PO ONE (11:00)
--- NOTE | 2021-12-19 11:11 | P.PN ---
Subjective Date of Service: 12/19/21 Chief Complaint: Hematemesis, anemia, esophageal varices, EtOH cirrhosis Patient's condition is improving he is more responsive less agitated still on Precedex drip Review of Systems is unable to be obtained Physical Examination - Vital Signs Temperature: 97.3 F Blood Pressure: 109/69 Pulse: 61 Respirations: 17 Pulse Ox (%): 97 - Physical Exam General: Other (Minimally responsive will open eyes at time) Respiratory: Clear to auscultation bilaterally, Friction rub Cardiovascular: Regular rate/rhythm, Normal S1 S2 Assessment And Plan - Current Problems (Diagnosis) (1) Cirrhosis Current Visit: Yes Status: Acute Plan: Patient's condition is stable no further bleeding continue with octreotide for total of 5 days patient's hemoglobin is stable there is no further bleeding noted Qualifiers: Hepatic cirrhosis type: alcoholic cirrhosis (2) Alcohol withdrawal delirium Current Visit: Yes Status: Acute Plan: Wean off Precedex continue with benzodiazepines as needed patient's condition is improving probably we can start feeding him tomorrow patient is becoming hyponatremic increase IV fluids changed to D5 water with multivitamins Physician Review: Patient Assessed, Agree with Above Assessment and Plan
[2021-12-19] MEDS: THIAMINE HCL IV SCH (13:29)
[2021-12-19] MEDS: MULTIVITAMINS IV SCH (13:29)
[2021-12-19] MEDS: D5W IV SCH (13:29)
[2021-12-19] MEDS: FOLIC ACID IV SCH (13:29)
[2021-12-19] MEDS: DEXMEDETOMIDINE HCL 1,000 MCG in NA CHLORIDE 0.9% 490 ML IV SCH (14:26)
[2021-12-19] MEDS: LORazepam 2 MG/ML VIAL IV PRN ×2 (21:57→22:46)
[2021-12-20] MEDS: LORazepam 2 MG/ML VIAL IV PRN (01:16)
[2021-12-20] MEDS: LORazepam 2 MG/ML VIAL IV SCH ×3 (02:20→05:22)
[2021-12-20 05:40] LABS: Magnesium 2.2 mg/dL (1.8-2.4); Potassium 3.5 mmol/L (3.5-5.1)
[2021-12-20 05:48] LABS: Absolute Lymphocytes (CBC) 1.2 K/uL (0.7-4.9); Lymphocytes % 25.9 % (15.3-44.8); MCV 99.3 fL (80-100); MPV 12.3 fL (7.6-11.3); RBC Red Blood Cell Count 3.02 M/uL (4.33-5.43)
[2021-12-20] MEDS: DEXMEDETOMIDINE HCL 1,000 MCG in NA CHLORIDE 0.9% 490 ML IV SCH (06:05)
[2021-12-20] MEDS ORDERED: POTASSIUM 25 MEQ EFFERV TAB PO ONE (07:30)
[2021-12-20] MEDS ORDERED: LORazepam 2 MG/ML VIAL IV PRN (07:30)
--- NOTE | 2021-12-20 07:45 | P.PN ---
Date of Service: 12/20/21 Subjective Patient has required sedation through the night. He is still actively going through DTs. We will increase Precedex drip and Librium dosage. Physical Examination - Physical Exam General: Lethargic and obtunded Respiratory: Clear to auscultation bilaterally, Normal air movement Cardiovascular: Regular rate/rhythm, Normal S1 S2 Gastrointestinal: Normal bowel sounds, Soft and benign, No tenderness, No masses, No rebound, No guarding Neurological: no focal deficits Assessment and Plan - Assessment Assessment: Hematemesis secondary to esophageal varices Suspected alcoholic hepatitis/alcoholic cirrhosis of liver with active DTs Thrombocytopenia related to above Alcohol use disorder - Plan Plan: Hematemesis: PPI, Octreotide, s/p banding x 3; monitor H&H Suspected alcoholic hepatitis/alcoholic cirrhosis of liver: Continue with DT meds-librium, ativan prn; on precedex drip Thrombocytopenia related to above: SCDs for DVT prophylaxis, monitor platelet counts with daily CBC. Alcohol use disorder: Patient has been counseled extensively on need for alcohol cessation. His last drink was 4 days ago; he has been a daily drinker since he was a teenager; active DTs DVT PPX: SCD Code status: Full Discharge Plan: Home Plan to discharge in: 72 Hours - Advance Directives Does patient have a Living Will: No Does patient have a Durable POA for Healthcare: No - Code Status/Comfort Care Code Status Assessed: Yes (Full code) Critical Care: No Time Spent Managing Pts Care (In Minutes): 70
[2021-12-20] MEDS ORDERED: POTASSIUM CL SA 10 MEQ TAB PO ONE (08:00)
[2021-12-20] MEDS: chlordiazePOXIDE HCl 25 MG CAP PO SCH ×4 (08:40→23:16)
[2021-12-20] MEDS: CEFTRIAXONE 2,000 MG in NA CHLORIDE 0.9% 100 ML IV SCH (08:40)
[2021-12-20] MEDS ORDERED: MULTIVITAMINS IV SCH (09:00)
[2021-12-20] MEDS ORDERED: D5W IV SCH (09:00)
[2021-12-20] MEDS ORDERED: THIAMINE HCL IV SCH (09:00)
[2021-12-20] MEDS ORDERED: FOLIC ACID IV SCH (09:00)
[2021-12-20] MEDS: OCTREOTIDE 500 MCG in NA CHLORIDE 0.9% 500 ML IV SCH ×2 (09:04→19:38)
[2021-12-20] MEDS: MULTIVITAMINS IV SCH (09:05)
[2021-12-20] MEDS: THIAMINE HCL IV SCH (09:05)
[2021-12-20] MEDS: D5W IV SCH (09:05)
[2021-12-20] MEDS: FOLIC ACID IV SCH (09:05)
[2021-12-20] MEDS: ENSURE HIGH PROTEIN 237 ML CAN PO SCH ×2 (13:48→20:21)
--- NOTE | 2021-12-20 18:49 | P.PN ---
Subjective Date of Service: 12/20/21 Chief Complaint: Hematemesis, anemia, esophageal varices, EtOH cirrhosis Subjective: Improving (No GI bleeding. Increased po intake, CLs. Belligerent at night again and Librium increased; Precidex restart for relief. Weaning of Octreotide started today.) Review of Systems 10-point ROS is otherwise unremarkable General: Weakness (Improved.) Neurological: Confusion (DTs ) Physical Examination - Vital Signs Temperature: 96.8 F Blood Pressure: 98/74 Pulse: 61 Respirations: 16 Pulse Ox (%): 98 Assessment And Plan - Current Problems (Diagnosis) (1) Hematemesis Current Visit: Yes Status: Acute Comment: None in 2 days. Hgb increasing to 9.9 today. (2) Melena Current Visit: Yes Status: Acute (3) Nausea & vomiting Current Visit: Yes Status: Acute (4) Thrombocytopenia Current Visit: Yes Status: Acute (5) Alcohol abuse Current Visit: Yes Status: Acute (6) Anemia Current Visit: Yes Status: Acute (7) Cirrhosis Current Visit: Yes Status: Acute Qualifiers: Hepatic cirrhosis type: alcoholic cirrhosis - Plan REC: 1) continue IV Octreotide weaning 10 mcg/hour q 12 hours 2) continue IV Ceftriaxone 3) PPI bid dosing 4) CL to [place] to Low Na diet 5) DT precautions 6) Librium continue. Also prn Ativan 7) Thiamine and Folate change to po 8) monitor labs 9) Precidex, as per pulmonology 10) U/S abdomen 11) decrease all IVFs / IV meds as able 12) consider start of diurectics with slowly increasing abdominal girth, likely ascites 13) if SBP > 110 consistently, start Coreg Physician Review: Patient Assessed, Agree with Above Assessment and Plan
[2021-12-20] MEDS: PANTOPRAZOLE 40 MG INJ IVP SCH (20:01)
[2021-12-21] MEDS: DEXMEDETOMIDINE HCL 1,000 MCG in NA CHLORIDE 0.9% 490 ML IV SCH (00:50)
[2021-12-21] MEDS: OCTREOTIDE 500 MCG in NA CHLORIDE 0.9% 500 ML IV SCH ×2 (04:08→14:08)
[2021-12-21] MEDS: chlordiazePOXIDE HCl 25 MG CAP PO SCH ×4 (06:14→23:39)
[2021-12-21 06:54] LABS: Absolute Lymphocytes (CBC) 1.4 K/uL (0.7-4.9); Hematocrit 29.9 % (39.6-49.0); Lymphocytes % 26.7 % (15.3-44.8); MCV 99.2 fL (80-100); MPV 12.2 fL (7.6-11.3); RBC Red Blood Cell Count 3.02 M/uL (4.33-5.43)
[2021-12-21 07:35] LABS: Protime INR 1.48
[2021-12-21 07:41] LABS: Bilirubin Total 1.9 mg/dL (0.2-1.0); Folic Acid, (Folate) 16.1 ng/mL (3.1-17.5); Magnesium 2.1 mg/dL (1.8-2.4); Phosphorus 3.1 mg/dL (2.5-4.9); Potassium 3.5 mmol/L (3.5-5.1)
[2021-12-21] MEDS: PANTOPRAZOLE 40 MG INJ IVP SCH ×2 (07:54→20:11)
[2021-12-21] MEDS: FOLIC ACID 1 MG TABLET PO SCH (07:54)
[2021-12-21] MEDS: THIAMINE HCL 100 MG TABLET PO SCH (07:55)
[2021-12-21] MEDS: MULTIVITAMIN TAB PO SCH (07:55)
[2021-12-21] MEDS: CEFTRIAXONE 2,000 MG in NA CHLORIDE 0.9% 100 ML IV SCH (07:56)
[2021-12-21 07:57] LABS: White Blood Cell Scan OK (OK)
[2021-12-21 07:58] LABS: Anisocytosis SLIGHT; Blood Morphology Comment NOTED (NOT SEEN); Macrocytosis SLIGHT; Platelet Estimate DECR
[2021-12-21] MEDS: ENSURE HIGH PROTEIN 237 ML CAN PO SCH ×3 (07:58→20:08)
[2021-12-21 07:59] LABS: Platelets, Giant FEW
[2021-12-21] MEDS ORDERED: THIAMINE 200 MG/2 ML INJ IM SCH (09:00)
--- NOTE | 2021-12-21 09:20 | RAD REPORT ---
EXAM DESCRIPTION: US - Abdomen Exam Complete - 12/21/2021 5:56 am CLINICAL HISTORY: Abdominal pain. Abdominal distention COMPARISON: No comparisons FINDINGS: Diffuse fatty infiltration of the liver is present. No focal liver lesions or intrahepatic biliary dilatation is seen. Echogenic material seen in the gallbladder neck likely representing stones. Common bile duct is norm al in caliber measuring 4 mm. The right kidney measures 11.9 x 4.6 x 4.6 cm. No right-sided hydronephrosis. The left kidney and spleen were not well visualized due to patient position. The pancreas and aorta are obscured by bowel gas. The visualized aspects of the IVC are grossly normal. Mild ascites. IMPRESSION: Prominent diffuse fatty liver is present. Cholelithiasis. Mild ascites.
[2021-12-21] MEDS: LORazepam 2 MG/ML VIAL IV PRN ×4 (14:20→22:16)
[2021-12-21] MEDS ORDERED: carvediloL 6.25 MG TAB PO SCH (18:00)
[2021-12-21] MEDS ORDERED: POLYETHYL GLY 3350 17 GM/DOSE PO PRN (20:28)
--- NOTE | 2021-12-21 20:28 | P.PN ---
Subjective Date of Service: 12/21/21 Chief Complaint: Hematemesis, anemia, esophageal varices, EtOH cirrhosis Subjective: Improving (No GI bleeding. Tolerating Ensure po and some other po though minimal. Abdomen becoming more distended with tympany; no bowel movements in days; U/S abdomen with mild ascites. Still on Precidex and Librium.) Review of Systems 10-point ROS is otherwise unremarkable Neurological: Other (DTs cont.) Physical Examination - Vital Signs Temperature: 97.3 F Blood Pressure: 126/79 Pulse: 76 Respirations: 24 Pulse Ox (%): 96 - Physical Exam General: Disheveled (Sedated ) HEENT: Atraumatic, Normocephalic Neck: Supple Respiratory: Normal air movement Cardiovascular: Normal pulses Gastrointestinal: No tenderness, No rebound, No guarding, Distended (with tympany in upper abdomen) Neurological: Normal speech, Normal strength at 5/5 x4 extr Assessment And Plan - Current Problems (Diagnosis) (1) Hematemesis Current Visit: Yes Status: Acute Comment: None in 2 days. Hgb increasing to 9.9 today. (2) Melena Current Visit: Yes Status: Acute (3) Nausea & vomiting Current Visit: Yes Status: Acute (4) Thrombocytopenia Current Visit: Yes Status: Acute (5) Alcohol abuse Current Visit: Yes Status: Acute (6) Anemia Current Visit: Yes Status: Acute (7) Cirrhosis Current Visit: Yes Status: Acute Qualifiers: Hepatic cirrhosis type: alcoholic cirrhosis - Plan REC: 1) continue IV Octreotide weaning 10 mcg/hour q 12 hours 2) continue IV Ceftriaxone 3) PPI bid dosing 4) soft, Low Na diet. Try to increase po intake 5) DT precautions 6) Librium continue. Also prn Ativan 7) Thiamine and Folate change to po 8) monitor labs 9) Precidex, as per pulmonology 10) if SBP > 110 consistently, start Coreg 11) Dulcolax prn, Miralax tid Physician Review: Patient Assessed, Agree with Above Assessment and Plan
[2021-12-22] MEDS: OCTREOTIDE 500 MCG in NA CHLORIDE 0.9% 500 ML IV SCH ×2 (00:08→10:08)
[2021-12-22] MEDS: LORazepam 2 MG/ML VIAL IV PRN ×2 (02:06→03:08)
[2021-12-22] MEDS: DEXMEDETOMIDINE HCL 1,000 MCG in NA CHLORIDE 0.9% 490 ML IV SCH (02:14)
[2021-12-22 05:18] LABS: Magnesium 1.9 mg/dL (1.8-2.4); Potassium 4.4 mmol/L (3.5-5.1)
[2021-12-22] MEDS: chlordiazePOXIDE HCl 25 MG CAP PO SCH ×2 (05:36→12:07)
[2021-12-22] MEDS: PANTOPRAZOLE 40 MG INJ IVP SCH ×2 (09:08→20:33)
[2021-12-22] MEDS: FOLIC ACID 1 MG TABLET PO SCH (09:09)
[2021-12-22] MEDS: CEFTRIAXONE 2,000 MG in NA CHLORIDE 0.9% 100 ML IV SCH (09:09)
[2021-12-22] MEDS: MULTIVITAMIN TAB PO SCH (09:09)
[2021-12-22] MEDS: THIAMINE HCL 100 MG TABLET PO SCH (09:10)
[2021-12-22] MEDS: ENSURE HIGH PROTEIN 237 ML CAN PO SCH ×3 (09:10→20:32)
[2021-12-22] MEDS ORDERED: ALBUMIN HUMAN 25% 100 ML IV ONE (12:47)
--- NOTE | 2021-12-22 14:14 | P.PN ---
Subjective Date of Service: 12/22/21 Chief Complaint: Hematemesis, anemia, esophageal varices, EtOH cirrhosis Subjective: Improving (Off Precidex, talking to RNs and cooperative now. Tolerating more po. No bowel movement yet, despite Dulcolax [place].) Review of Systems General: Weakness (Improved. ) Physical Examination - Vital Signs Temperature: 97.1 F Blood Pressure: 109/60 Pulse: 61 Respirations: 15 Pulse Ox (%): 98 Assessment And Plan - Current Problems (Diagnosis) (1) Hematemesis Current Visit: Yes Status: Acute Comment: None in 4 days. Hgb stable at 9.9 for 3 days. (2) Melena Current Visit: Yes Status: Acute (3) Nausea & vomiting Current Visit: Yes Status: Acute (4) Thrombocytopenia Current Visit: Yes Status: Acute (5) Alcohol abuse Current Visit: Yes Status: Acute (6) Anemia Current Visit: Yes Status: Acute (7) Cirrhosis Current Visit: Yes Status: Acute Qualifiers: Hepatic cirrhosis type: alcoholic cirrhosis - Plan REC: 1) continue IV Octreotide weaning 10 mcg/hour q 12 hours 2) continue IV Ceftriaxone 3) PPI bid dosing 4) soft, Low Na diet. Try to increase po intake 5) DT precautions 6) Librium continue. Also prn Ativan 7) Thiamine and Folate po 8) monitor labs 9) Precidex, as per pulmonology -> weaned off today 10) if SBP > 110 consistently, start Coreg 11) Miralax tid (hopefully stool will occur off Precidex) 12) check KUB Physician Review: Patient Assessed, Agree with Above Assessment and Plan
[2021-12-22] MEDS: POLYETHYL GLY 3350 17 GM/DOSE PO SCH ×2 (14:50→20:32)
[2021-12-22] MEDS: FUROSEMIDE 20 MG/ 2ML VIAL IV ONE ×2 (15:33→18:53)
--- NOTE | 2021-12-22 15:52 | RAD REPORT ---
EXAM DESCRIPTION: RAD - Abdomen 1 View (KUB) - 12/22/2021 3:19 pm CLINICAL HISTORY: constipation, distended abdomen Pain COMPARISON: No comparisons FINDINGS: Diffuse gaseous distention is seen of bowel in a non organized pattern likely representing a diffuse ileus. No suspicious calcifications. No significant bony findings. IMPRESSION: Diffuse adynamic ileus is suspected.
[2021-12-22] MEDS: chlordiazePOXIDE HCl 5 MG CAP PO SCH ×2 (18:18→23:53)
[2021-12-22] MEDS ORDERED: FUROSEMIDE 20 MG/ 2ML VIAL IV ONE (19:00)
[2021-12-22] MEDS ORDERED: ALBUMIN HUMAN 25% 50 ML IV ONE (20:00)
[2021-12-23 04:43] LABS: Hematocrit 37.7 % (39.6-49.0); Lymphocytes % 14.6 % (15.3-44.8); MPV 12.3 fL (7.6-11.3); RBC Red Blood Cell Count 3.89 M/uL (4.33-5.43)
[2021-12-23 05:00] LABS: Magnesium 1.9 mg/dL (1.8-2.4); Phosphorus 3.4 mg/dL (2.5-4.9); Potassium 3.3 mmol/L (3.5-5.1)
[2021-12-23] MEDS: chlordiazePOXIDE HCl 5 MG CAP PO SCH ×3 (06:08→17:04)
--- NOTE | 2021-12-23 08:50 | P.PN ---
Date of Service: 12/21/21 Subjective Awake and alert. We are weaning him off the Precedex drip. Started to feel we will also increase Librium to 25 mg every 6 hours. Start diuresing the patient as well. Physical Examination - Physical Exam General: Lethargic and awake and alert and following some commands Respiratory: Clear to auscultation bilaterally, Normal air movement Cardiovascular: Regular rate/rhythm, Normal S1 S2 Gastrointestinal: Normal bowel sounds, Soft and benign, No tenderness, No masses, No rebound, No guarding. Mildly distended Neurological: no focal deficits Assessment and Plan - Assessment Assessment: Hematemesis secondary to esophageal varices Suspected alcoholic hepatitis/alcoholic cirrhosis of liver with active DTs Thrombocytopenia related to above Alcohol use disorder Hepatic encephalopathy - Plan Plan: Hematemesis: PPI, s/p banding x 3; monitor H&H; weaning off octreotide Suspected alcoholic hepatitis/alcoholic cirrhosis of liver: Continue with DT meds-librium, ativan prn; on precedex drip; increased on Librium and weaning off Precedex. Decrease Ativan dosing Thrombocytopenia related to above: SCDs for DVT prophylaxis, monitor platelet counts with daily CBC. Alcohol use disorder: Patient has been counseled regarding alcohol abuse and cessation. When he is more awake and alert we will talk to him again regarding this. DVT PPX: SCD Code status: Full Discharge Plan: Home Plan to discharge in: 72 Hours - Advance Directives Does patient have a Living Will: No Does patient have a Durable POA for Healthcare: No - Code Status/Comfort Care Code Status Assessed: Yes (Full code) Critical Care: No Time Spent Managing Pts Care (In Minutes): 70
--- NOTE | 2021-12-23 08:53 | P.PN ---
Date of Service: 12/22/21 Subjective Patient's neurologic status continues to improve. We will wean patient off of the Precedex drip. Continue with Librium and we will slowly start tapering. Continue to diurese patient as long as blood pressure tolerates it. Physical Examination - Physical Exam General: Lethargic and awake and alert and following some commands Respiratory: Clear to auscultation bilaterally, Normal air movement Cardiovascular: Regular rate/rhythm, Normal S1 S2 Gastrointestinal: Normal bowel sounds, Soft and benign, No tenderness, No masses, No rebound, No guarding. Mildly distended Neurological: no focal deficits Assessment and Plan - Assessment Assessment: Hematemesis secondary to esophageal varices Suspected alcoholic hepatitis/alcoholic cirrhosis of liver with active DTs Thrombocytopenia related to above Alcohol use disorder Hepatic encephalopathy - Plan Plan: Hematemesis: PPI, s/p banding x 3; monitor H&H; we will wean off the octreotide today Suspected alcoholic hepatitis/alcoholic cirrhosis of liver: Continue with DT meds-librium, ativan prn; on precedex drip; start titrating Librium and discontinue Precedex. Decrease Ativan dosing Thrombocytopenia related to above: SCDs for DVT prophylaxis, monitor platelet counts with daily CBC. Alcohol use disorder: Patient has been counseled regarding alcohol abuse and cessation. When he is more awake and alert we will talk to him again regarding this. Hepatic encephalopathy; start lactulose. Continue to diurese.
[2021-12-23] MEDS ORDERED: POTASSIUM 25 MEQ EFFERV TAB PO ONE (08:55)
[2021-12-23] MEDS ORDERED: LACTULOSE 20 GM/30 ML UCUP PO ONE (08:55)
--- NOTE | 2021-12-23 08:58 | P.PN ---
Date of Service: 12/23/21 Subjective started working with physical therapy. He is slow to improve. Physical Examination - Physical Exam General: Lethargic and awake and alert and following some commands Respiratory: Clear to auscultation bilaterally, Normal air movement Cardiovascular: Regular rate/rhythm, Normal S1 S2 Gastrointestinal: Normal bowel sounds, Soft and benign, No tenderness, No masses, No rebound, No guarding. Mildly distended Neurological: no focal deficits Assessment and Plan - Assessment Assessment: Hematemesis secondary to esophageal varices Suspected alcoholic hepatitis/alcoholic cirrhosis of liver with active DTs Thrombocytopenia related to above Alcohol use disorder Hepatic encephalopathy - Plan Plan: Hematemesis: PPI, s/p banding x 3; monitor H&H; Suspected alcoholic hepatitis/alcoholic cirrhosis of liver: Continue with DT meds-librium, ativan prn; Thrombocytopenia related to above: SCDs for DVT prophylaxis, monitor platelet counts with daily CBC. Alcohol use disorder: Patient has been counseled regarding alcohol abuse and cessation. Hepatic encephalopathy; start lactulose. Continue to diurese.
[2021-12-23] MEDS ORDERED: POTASSIUM CL SA 10 MEQ TAB PO ONE (09:00)
[2021-12-23] MEDS: ENSURE HIGH PROTEIN 237 ML CAN PO SCH ×4 (09:00→20:07)
[2021-12-23] MEDS ORDERED: carvediloL 6.25 MG TAB PO SCH (09:00)
[2021-12-23] MEDS ORDERED: METOPROLOL TARTRATE 5 MG/5 ML INJ IV STA (09:03)
[2021-12-23] MEDS: FUROSEMIDE 20 MG/ 2ML VIAL IV SCH ×2 (09:16→17:05)
[2021-12-23] MEDS: PANTOPRAZOLE 40 MG INJ IVP SCH (09:16)
[2021-12-23] MEDS: MULTIVITAMIN TAB PO SCH (09:17)
[2021-12-23] MEDS: SPIRONOLACTONE 25 MG TABLET PO SCH ×2 (09:17→20:05)
[2021-12-23] MEDS: POLYETHYL GLY 3350 17 GM/DOSE PO SCH ×4 (09:17→20:35)
[2021-12-23] MEDS: FOLIC ACID 1 MG TABLET PO SCH (09:17)
[2021-12-23] MEDS: THIAMINE HCL 100 MG TABLET PO SCH (09:17)
[2021-12-23] MEDS: CEFTRIAXONE 2,000 MG in NA CHLORIDE 0.9% 100 ML IV SCH (09:17)
[2021-12-23] MEDS: carvediloL 12.5 MG TAB PO SCH ×2 (09:18→20:05)
[2021-12-23] MEDS: PANTOPRAZOLE 40MG TABLET PO SCH (17:04)
[2021-12-23] MEDS: CEFDINIR 300 MG CAP PO SCH (20:05)
[2021-12-23] MEDS: CALCIUM CARBONATE CHEW 500MG TAB PO PRN (20:06)
[2021-12-24 05:17] VITALS: BMI 31.3
[2021-12-24 05:54] LABS: Absolute Lymphocytes (CBC) 1.2 K/uL (0.7-4.9); Hematocrit 27.8 % (39.6-49.0); Lymphocytes % 17.8 % (15.3-44.8); MCV 96.4 fL (80-100); MPV 11.3 fL (7.6-11.3); RBC Red Blood Cell Count 2.88 M/uL (4.33-5.43)
[2021-12-24 06:09] LABS: Albumin 2.3 g/dL (3.4-5.0); Bilirubin Total 1.9 mg/dL (0.2-1.0); Magnesium 1.8 mg/dL (1.8-2.4); Potassium 3.3 mmol/L (3.5-5.1); Protein, Total 5.4 g/dL (6.4-8.2)
[2021-12-24] MEDS: chlordiazePOXIDE HCl 5 MG CAP PO SCH ×5 (06:21→23:43)
[2021-12-24 06:54] LABS: Anisocytosis 1+; Blood Morphology Comment NOTED (NOT SEEN); Hypochromasia 1+; Macrocytosis 1+; Platelet Estimate ADEQ; Platelets, Giant FEW; White Blood Cell Scan OK (OK)
[2021-12-24] MEDS: PANTOPRAZOLE 40MG TABLET PO SCH ×2 (07:30→16:27)
[2021-12-24] MEDS: FOLIC ACID 1 MG TABLET PO SCH (09:00)
[2021-12-24] MEDS: carvediloL 12.5 MG TAB PO SCH ×2 (09:00→22:08)
[2021-12-24] MEDS: FUROSEMIDE 20 MG/ 2ML VIAL IV SCH ×2 (09:00→16:28)
[2021-12-24] MEDS: ENSURE HIGH PROTEIN 237 ML CAN PO SCH ×3 (09:00→21:00)
[2021-12-24] MEDS: NICOTINE 21 MG/PAT TD SCH (09:00)
[2021-12-24] MEDS: CEFDINIR 300 MG CAP PO SCH ×2 (09:00→21:00)
[2021-12-24] MEDS: MULTIVITAMIN TAB PO SCH (09:00)
[2021-12-24] MEDS: THIAMINE HCL 100 MG TABLET PO SCH (09:00)
[2021-12-24] MEDS: POLYETHYL GLY 3350 17 GM/DOSE PO SCH ×2 (09:00→13:38)
[2021-12-24] MEDS: SPIRONOLACTONE 25 MG TABLET PO SCH ×2 (09:00→22:08)
--- NOTE | 2021-12-24 12:11 | RAD REPORT ---
EXAM DESCRIPTION: CT - Abdomen Pelvis Wo Contrast - 12/24/2021 9:51 am CLINICAL HISTORY: Abdominal pain. Abd distention/ileus COMPARISON: Abdomen Pelvis W Contrast dated 12/15/2021 TECHNIQUE: CT imaging of the abdomen and pelvis was performed without contrast. Solid organ and vasc ular assessment is limited due to lack of IV contrast. All CT scans are performed using dose optimization technique as appropriate and may include automated exposure control or mA/KV adjustment according to patient size. FINDINGS: There is mild to moderate atelectasis in the medial right lung base.Trace pleural fluid is seen bilaterally. Mildly prominent liver size. Cholelithiasis. Spleen is mildly prominent.Pancreas, adrenal glands and kidneys are unremarkable for noncontrast imaging. There is mild ascites noted. Thickened appearance to the cecum and right colon is noted numerous vari tiffanie are present along the right flank. No evidence of a bowel obstruction. Normal appendix. The osseous structures are within normal limits. IMPRESSION: Mild ascites is present. Cholelithiasis. Hepatosplenomegaly is present. Thickening of the cecum in the right colon could be related to colitis or portal colopathy. A limited non-contrast examination was performed as detailed.
[2021-12-24] MEDS: CALCIUM CARBONATE CHEW 500MG TAB PO PRN ×2 (13:38→22:09)
[2021-12-24] MEDS ORDERED: POTASSIUM CL SA 10 MEQ TAB PO ONE (15:17)
--- NOTE | 2021-12-24 19:07 | P.PN ---
Date of Service: 12/24/21 Subjective Patient states he is doing better. Still little lethargic and will slowly start weaning down the Librium. Ammonia level was still a little elevated so will increase his lactulose to twice a day. He is getting MiraLax 3 times a day so I will discontinue this. His abdomen is less distended. Continue with diuresing aggressively with Lasix and Aldactone. He is working well with physical therapy. Starting to eat a little bit better. Clinical symptoms continued to slowly improve. He is stable to go to the general medical floor. Physical Examination - Physical Exam General: Lethargic and awake and alert and following some commands Respiratory: Clear to auscultation bilaterally, Normal air movement Cardiovascular: Regular rate/rhythm, Normal S1 S2 Gastrointestinal: Normal bowel sounds, Soft and benign, No tenderness, No masses, No rebound, No guarding. Mildly distended Neurological: no focal deficits Assessment and Plan - Assessment Assessment: Hematemesis secondary to esophageal varices Suspected alcoholic hepatitis/alcoholic cirrhosis of liver with active DTs Thrombocytopenia related to above Alcohol use disorder Hepatic encephalopathy - Plan Plan: Hematemesis: PPI, s/p banding x 3; monitor H&H; Patient was on octreotide but we have discontinued this December 22. Hemoglobin has remained stable. Continue with PPI twice a day. Patient will need to refrain from alcohol use. Suspected alcoholic hepatitis/alcoholic cirrhosis of liver: We have weaned him off the Precedex. Continue tapering down Librium very slowly. Thrombocytopenia related to above: SCDs for DVT prophylaxis; Patient's platelet counts have been stable Alcohol use disorder: Patient has been counseled regarding alcohol abuse and cessation. Hepatic encephalopathy; start lactulose. Continue to diurese.
[2021-12-24] MEDS: LACTULOSE 20 GM/30 ML UCUP PO SCH (21:00)
[2021-12-25] MEDS: LORazepam 2 MG/ML VIAL IV PRN ×2 (00:28→22:19)
[2021-12-25 05:18] LABS: Absolute Lymphocytes (CBC) 1.5 K/uL (0.7-4.9); Hematocrit 28.9 % (39.6-49.0); Lymphocytes % 19.1 % (15.3-44.8); MCV 95.9 fL (80-100); MPV 11.4 fL (7.6-11.3); RBC Red Blood Cell Count 3.01 M/uL (4.33-5.43)
[2021-12-25 05:39] LABS: Albumin 2.4 g/dL (3.4-5.0); Bilirubin Direct 1.3 mg/dL (0-0.2); Bilirubin Total 1.7 mg/dL (0.2-1.0); Magnesium 1.7 mg/dL (1.8-2.4); Protein, Total 5.8 g/dL (6.4-8.2)
[2021-12-25] MEDS: chlordiazePOXIDE HCl 5 MG CAP PO SCH ×4 (06:07→21:33)
[2021-12-25] MEDS ORDERED: POTASSIUM 25 MEQ EFFERV TAB PO ONE (08:00)
[2021-12-25] MEDS: FOLIC ACID 1 MG TABLET PO SCH (08:19)
[2021-12-25] MEDS: carvediloL 12.5 MG TAB PO SCH ×2 (08:19→21:32)
[2021-12-25] MEDS: SPIRONOLACTONE 25 MG TABLET PO SCH ×2 (08:19→21:31)
[2021-12-25] MEDS: THIAMINE HCL 100 MG TABLET PO SCH (08:20)
[2021-12-25] MEDS: FUROSEMIDE 20 MG/ 2ML VIAL IV SCH (08:20)
[2021-12-25] MEDS: NICOTINE 21 MG/PAT TD SCH (08:20)
[2021-12-25] MEDS: MULTIVITAMIN TAB PO SCH (08:20)
[2021-12-25] MEDS: LACTULOSE 20 GM/30 ML UCUP PO SCH ×2 (08:21→21:00)
[2021-12-25] MEDS: PANTOPRAZOLE 40MG TABLET PO SCH ×2 (08:21→16:22)
[2021-12-25] MEDS: CEFDINIR 300 MG CAP PO SCH ×2 (08:22→21:32)
[2021-12-25] MEDS: ENSURE HIGH PROTEIN 237 ML CAN PO SCH ×3 (08:22→21:00)
--- NOTE | 2021-12-25 11:48 | P.PN ---
Date of Service: 12/25/21 Subjective Feeling much better. Clinical status continues to improve. Wean off the Librium. Physical Examination - Physical Exam General: Lethargic and awake and alert and following some commands Respiratory: Clear to auscultation bilaterally, Normal air movement Cardiovascular: Regular rate/rhythm, Normal S1 S2 Gastrointestinal: Normal bowel sounds, Soft and benign, No tenderness, No masses, No rebound, No guarding. Mildly distended Neurological: no focal deficits Assessment and Plan - Assessment Assessment: Hematemesis secondary to esophageal varices Suspected alcoholic hepatitis/alcoholic cirrhosis of liver with active DTs Thrombocytopenia related to above Alcohol use disorder Hepatic encephalopathy - Plan Plan: Hematemesis: PPI, s/p banding x 3; monitor H&H; hemoglobin has been stable; beta-nicholas therapy to decrease portal hypertension Suspected alcoholic hepatitis/alcoholic cirrhosis of liver: Continue with DT meds-librium, start weaning off Librium Thrombocytopenia related to above: SCDs for DVT prophylaxis, monitor platelet counts with daily CBC. Alcohol use disorder: Patient has been counseled regarding alcohol abuse and cessation. Hepatic encephalopathy; cont. lactulose. Continue to diurese-Lasix and Aldactone. Monitor ammonia level
[2021-12-25] MEDS ORDERED: FUROSEMIDE 20 MG/ 2ML VIAL IV SCH (17:00)
[2021-12-25] MEDS ORDERED: CEFDINIR 300 MG CAP PO ONE (20:53)
[2021-12-26 06:16] LABS: Protime INR 1.7
[2021-12-26] MEDS ORDERED: POTASSIUM CL SA 10 MEQ TAB PO ONE (09:00)
[2021-12-26] MEDS: NICOTINE 21 MG/PAT TD SCH (09:00)
[2021-12-26] MEDS: chlordiazePOXIDE HCl 5 MG CAP PO SCH ×3 (09:12→20:40)
[2021-12-26] MEDS: carvediloL 12.5 MG TAB PO SCH ×2 (09:12→20:44)
[2021-12-26] MEDS: SPIRONOLACTONE 25 MG TABLET PO SCH ×2 (09:12→20:45)
[2021-12-26] MEDS: MULTIVITAMIN TAB PO SCH (09:13)
[2021-12-26] MEDS: THIAMINE HCL 100 MG TABLET PO SCH (09:13)
[2021-12-26] MEDS: PANTOPRAZOLE 40MG TABLET PO SCH ×2 (09:14→17:37)
[2021-12-26] MEDS: LACTULOSE 20 GM/30 ML UCUP PO SCH ×2 (09:14→20:41)
[2021-12-26] MEDS: FOLIC ACID 1 MG TABLET PO SCH (09:14)
[2021-12-26] MEDS: ENSURE HIGH PROTEIN 237 ML CAN PO SCH ×3 (09:14→20:41)
[2021-12-26] MEDS: CEFDINIR 300 MG CAP PO SCH ×2 (10:01→20:40)
[2021-12-26] MEDS: LORazepam 2 MG/ML VIAL IV PRN (20:40)
[2021-12-26] MEDS ORDERED: VITAMIN K (ADULT) 10 MG/ML SQ ONE (23:35)
--- NOTE | 2021-12-26 23:35 | P.PN ---
Date of Service: 12/26/21 Subjective Patient continues to improve. More awake and alert and interacting more appropriately. Abdomen is still slightly distended but improved. Physical Examination - Physical Exam General: Lethargic and awake and alert and following some commands Respiratory: Clear to auscultation bilaterally, Normal air movement Cardiovascular: Regular rate/rhythm, Normal S1 S2 Gastrointestinal: Normal bowel sounds, Soft and benign, No tenderness, No masses, No rebound, No guarding. Mildly distended Neurological: no focal deficits Assessment and Plan - Assessment Assessment: Hematemesis secondary to esophageal varices Suspected alcoholic hepatitis/alcoholic cirrhosis of liver with active DTs Thrombocytopenia related to above Alcohol use disorder Hepatic encephalopathy - Plan Plan: Hematemesis: PPI, s/p banding x 3; monitor H&H; hemoglobin has been stable; beta-nicholas therapy to decrease portal hypertension Suspected alcoholic hepatitis/alcoholic cirrhosis of liver: Continue with DT meds-librium, start weaning off Librium Thrombocytopenia related to above: SCDs for DVT prophylaxis, monitor platelet counts with daily CBC. Alcohol use disorder: Patient has been counseled regarding alcohol abuse and cessation. Hepatic encephalopathy; cont. lactulose. Continue to diurese-Lasix and Al dactone. Monitor ammonia level
[2021-12-27] MEDS ORDERED: VITAMIN K (ADULT) 10 MG/ML ONE (01:19)
[2021-12-27 02:52] VITALS: O2SAT 94
[2021-12-27 06:09] LABS: Absolute Lymphocytes (CBC) 1.2 K/uL (0.7-4.9); Hematocrit 29.9 % (39.6-49.0); Lymphocytes % 13.6 % (15.3-44.8); MCV 96.5 fL (80-100); MPV 10.8 fL (7.6-11.3); RBC Red Blood Cell Count 3.09 M/uL (4.33-5.43)
[2021-12-27 06:29] LABS: Albumin 2.4 g/dL (3.4-5.0); Bilirubin Total 1.7 mg/dL (0.2-1.0); Potassium 3.4 mmol/L (3.5-5.1); Protein, Total 5.7 g/dL (6.4-8.2)
[2021-12-27] MEDS ORDERED: POTASSIUM CL SA 10 MEQ TAB PO ONE (09:00)
[2021-12-27] MEDS: NICOTINE 21 MG/PAT TD SCH (09:00)
[2021-12-27] MEDS: ENSURE HIGH PROTEIN 237 ML CAN PO SCH ×3 (09:37→21:00)
[2021-12-27] MEDS: CEFDINIR 300 MG CAP PO SCH ×2 (09:38→21:00)
[2021-12-27] MEDS: chlordiazePOXIDE HCl 5 MG CAP PO SCH ×3 (09:38→21:14)
[2021-12-27] MEDS: LACTULOSE 20 GM/30 ML UCUP PO SCH ×2 (09:39→21:15)
[2021-12-27] MEDS: carvediloL 12.5 MG TAB PO SCH ×2 (09:39→21:15)
[2021-12-27] MEDS: FOLIC ACID 1 MG TABLET PO SCH (09:39)
[2021-12-27] MEDS: THIAMINE HCL 100 MG TABLET PO SCH (09:39)
[2021-12-27] MEDS: SPIRONOLACTONE 25 MG TABLET PO SCH ×2 (09:39→21:15)
[2021-12-27] MEDS: MULTIVITAMIN TAB PO SCH (09:40)
[2021-12-27] MEDS: PANTOPRAZOLE 40MG TABLET PO SCH ×2 (09:40→16:17)
--- NOTE | 2021-12-27 17:17 | P.PN ---
Subjective Date of Service: 12/27/21 Chief Complaint: Hematemesis, anemia, esophageal varices, EtOH cirrhosis No acute events overnight. He is alert and oriented x 3 this morning. He appears calm and cooperative this morning. He reports that his primary concern is generalized weakness. Review of Systems 10-point ROS is otherwise unremarkable General: Weakness (generalized) Physical Examination - Vital Signs Temperature: 99.2 F Blood Pressure: 115/60 Pulse: 79 Respirations: 20 Pulse Ox (%): 95 Assessment And Plan - Plan - Physical Exam General: Alert, Oriented x3 HEENT: Atraumatic, Mucous membr. moist/pink, Sclerae nonicteric Neck: JVD not distended Respiratory: Clear to auscultation bilaterally, Normal air movement Cardiovascular: No edema, Regular rate/rhythm, Normal S1 S2, No gallops, No rubs, No murmurs Gastrointestinal: Normal bowel sounds, Soft and benign, Non-distended, No tenderness, No rebound, No guarding Musculoskeletal: No clubbing Integumentary: No rashes Neurological: A&Ox3, CN III-XII intact, moving all 4 extremities equally, sensation intact # Acute Blood Loss Anemia secondary to Acute Upper Gastrointestinal Bleed from Grade II Esophageal Varices (resolved) # Alcoholic Hepatitis (Maddrey's Discriminant Function Score = 15.1) # Alcoholic Cirrhosis (MELD 14) complicated by Portal Hypertension, Esophageal Varices, and Hepatic Encephalopathy # Thrombocytopenia secondary to above - Consulted Gastroenterology and spoke with Dr. Palomo - recommendations appreciated - S/P EGD on 12/15/2021: - Two columns of grade II esophageal varices s/p banding x 3 - Type & Screen = O-negative - Monitor CBC - Transfuse for Hgb < 7.0 - 2 large bore IVs - Continue pantoprazole, folic acid, thiamine, spironolactone, lacutlose # Alcohol Withdrawal Syndrome # Alcohol Use Disorder - Gradually wean off of chlordiazepoxide taper - He and his are arranging for outpatient alcohol rehab at [facility] post- discharge # Tobacco Use Disorder - Continue nicotine patch - Tobacco cessation counseling provided Denny Neal M.D. Discharge Plan: Home Plan to discharge in: 48 Hours
[2021-12-28 04:05] LABS: Potassium 3.5 mmol/L (3.5-5.1)
[2021-12-28] MEDS: NICOTINE 21 MG/PAT TD SCH (09:00)
[2021-12-28] MEDS ORDERED: POTASSIUM CL SA 10 MEQ TAB PO ONE (09:00)
[2021-12-28] MEDS: ENSURE HIGH PROTEIN 237 ML CAN PO SCH ×3 (09:00→20:29)
[2021-12-28] MEDS ORDERED: chlordiazePOXIDE HCl 5 MG CAP PO SCH (09:00)
[2021-12-28] MEDS: LACTULOSE 20 GM/30 ML UCUP PO SCH ×2 (09:43→20:29)
[2021-12-28] MEDS: SPIRONOLACTONE 25 MG TABLET PO SCH ×2 (09:44→20:28)
[2021-12-28] MEDS: FOLIC ACID 1 MG TABLET PO SCH (09:44)
[2021-12-28] MEDS: THIAMINE HCL 100 MG TABLET PO SCH (09:44)
[2021-12-28] MEDS: MULTIVITAMIN TAB PO SCH (09:44)
[2021-12-28] MEDS: carvediloL 12.5 MG TAB PO SCH ×2 (09:44→20:29)
[2021-12-28] MEDS: PANTOPRAZOLE 40MG TABLET PO SCH ×2 (09:44→17:09)
[2021-12-28] MEDS: chlordiazePOXIDE HCl 5 MG CAP PO SCH ×2 (10:17→20:28)
--- NOTE | 2021-12-28 18:26 | P.PN ---
Subjective Date of Service: 12/28/21 Chief Complaint: Hematemesis, anemia, esophageal varices, EtOH cirrhosis No acute events overnight. He is doing well this morning, and reports no further hand tremors. He is eager for discharge home. Will lower dose of chlordiazepoxide to 10 mg PO BID. If he does well on this without evidence of withdrawal, plan to discharge tomorrow with close outpatient follow-up. Review of Systems 10-point ROS is otherwise unremarkable General: Weakness Physical Examination - Vital Signs Temperature: 99.1 F Blood Pressure: 123/66 Pulse: 77 Respirations: 18 Pulse Ox (%): 99 Assessment And Plan - Plan - Physical Exam General: Alert, Oriented x3 HEENT: Atraumatic, Mucous membr. moist/pink, Sclerae nonicteric Neck: JVD not distended Respiratory: Clear to auscultation bilaterally, Normal air movement Cardiovascular: No edema, Regular rate/rhythm, Normal S1 S2, No gallops, No rubs, No murmurs Gastrointestinal: Normal bowel sounds, Soft and benign, Non-distended, No tenderness, No rebound, No guarding Musculoskeletal: No clubbing Integumentary: No rashes Neurological: A&Ox3, CN III-XII intact, moving all 4 extremities equally, sensation intact # Acute Blood Loss Anemia secondary to Acute Upper Gastrointestinal Bleed from Grade II Esophageal Varices (resolved) # Alcoholic Hepatitis (Maddrey's Discriminant Function Score = 15.1) # Alcoholic Cirrhosis (MELD 14) complicated by Portal Hypertension, Esophageal Varices, and Hepatic Encephalopathy # Thrombocytopenia secondary to above - Consulted Gastroenterology and spoke with Dr. Palomo - recommendations appreciated - S/P EGD on 12/15/2021: - Two columns of grade II esophageal varices s/p banding x 3 - Type & Screen = O-negative - Monitor CBC - Transfuse for Hgb < 7.0 - 2 large bore IVs - Continue pantoprazole, folic acid, thiamine, spironolactone, lacutlose # Alcohol Withdrawal Syndrome # Alcohol Use Disorder - Gradually wean off of chlordiazepoxide taper - Spoke with his PCP, Dr. José, who advised that he call and make an appointment for a post-hospitalization follow-up towards the end of this week - He and his are arranging for outpatient alcohol rehab at [facility] post- discharge # Tobacco Use Disorder - Continue nicotine patch - Tobacco cessation counseling provided Denny Neal M.D.
[2021-12-29 05:44] VITALS: BP 102/56; TEMP 97.8
[2021-12-29] MEDS: PANTOPRAZOLE 40MG TABLET PO SCH (06:38)
--- NOTE | 2021-12-29 07:19 | P.DS ---
Admission Date: 12/15/21 Discharge Date: 12/29/21 Disposition: ROUTINE DISCHARGE Discharge Condition: GOOD Reason for Admission: Hematemesis, anemia, esophageal varices, EtOH cirrhosis Consultations: 1. Gastroenterology 2. Pulmonary/Critical Care Medicine Procedures: - 12/15/2021 - Esophagogastroduodenoscopy with Esophageal Varices Banding Hospital Course: DIAGNOSES: # Acute Blood Loss Anemia secondary to Acute Upper Gastrointestinal Bleed from Grade II Esophageal Varices (resolved) # Alcoholic Hepatitis (Maddrey's Discriminant Function Score = 15.1) # Alcoholic Cirrhosis (MELD 14) complicated by Portal Hypertension, Esophageal Varices, and Hepatic Encephalopathy # Thrombocytopenia secondary to above # Adynamic Ileus (resolved) # Right Medial Gluteal Hematoma (6 x 4 cm) # Alcohol Withdrawal Syndrome # Alcohol Use Disorder # Tobacco Use Disorder HOSPITAL COURSE: Mr. Adrian Rangel is a 41 year old male with a past medical history significant for alcoholic cirrhosis who was admitted to the [facility] on 12/15/2021 for hematemesis. He was admitted to the Medicine service. Gastroenterology was consulted and he was evaluated by Dr. Palomo. On 12/15/2021, he underwent an esophagogastroduodenoscopy with banding x 3 to his esophageal varices. He did well post-operatively, but shortly after admission, he developed alcohol withdrawal syndrome. He became quite agitated, and despite the use of multiple doses of lorazepam, we were unable to calm him. Pulmonary/Critical Care was consulted and he was evaluated by Dr. Wetzel. He was placed on a dexmetomidine drip. Over the course of several days, these medications were weaned and he improved from his alcohol withdrawal. Although he improved from an alcohol withdrawal standpoint, he became confused and it was thought that he may have developed hepatic encephalopathy. He was started on spironolactone and lactulose and his mentation gradually improved to baseline. He continued to improve clinically and his chlordiazepoxide was gradually weaned to 10 mg BID. He is serious about quitting alcohol consumption and is scheduled to attend outpatient alcohol rehab at [facility]. For this reason, it was thought that a slower chlordiazepoxide taper may benefit him. I called and spoke with his PCP, Dr. José. We decided to send him out on chlordiazepoxide 10 mg BID x 5 days, followed by 10 mg daily x 5 days. He will have a few extra pills available if he feels that he is becoming tremulous. Dr. José agreed to see him in clinic and follow-up on him. On 12/29/2021, he was seen on morning rounds and deemed medically stable for discharge. He was discharged with instructions to schedule follow-up appointments with his PCP (Dr. José) in 3-5 days and with Gastroenterology/Hepatology (Dr. Palomo) in 1-2 weeks. He was provided prescriptions for chlordiazepoxide, lactulose, carvedilol, spironolactone, and pantoprazole. He was given the opportunity to ask questions and reported no further questions. Furthermore, all questions were answered to the best of my ability. Prior to the controlled substance prescription, a PDMP review was conducted. Over the last year, he has had 0 prescriptions from 0 providers to 0 pharmacies. His overdose risk score is 0. A copy of this discharge summary will be sent to the above providers to facilitate continuity of care. Today, I personally spent 25 minutes on his case, of which greater than 50% of the time was spent in patient education, counseling, and coordination of care as described above. - Physical Exam General: Alert, Oriented x3 HEENT: Atraumatic, Mucous membr. moist/pink, Sclerae nonicteric Neck: JVD not distended Respiratory: Clear to auscultation bilaterally, Normal air movement Cardiovascular: No edema, Regular rate/rhythm, Normal S1 S2, No gallops, No rubs, No murmurs Gastrointestinal: Normal bowel sounds, Soft and benign, Non-distended, No tenderness, No rebound, No guarding Musculoskeletal: No clubbing Integumentary: No rashes Neurological: A&Ox3, CN III-XII intact, moving all 4 extremities equally, sensation intact Vital Signs/Physical Exam: Temp Pulse Resp BP Pulse Ox 97.8 F 70 18 102/56 L 97 12/29/21 04:00 12/29/21 04:00 12/29/21 04:00 12/29/21 04:00 12/29/21 04:00 Laboratory Data at Discharge: WBC 9.00 K/uL (4.3-10.9) 12/27/21 06:00 Hgb 9.8 g/dL (13.6-17.9) L 12/27/21 06:00 Hct 29.9 % (39.6-49.0) L 12/27/21 06:00 Plt Count 201 K/uL (152-406) 12/27/21 06:00 PT 18.7 SECONDS (9.5-12.5) H 12/26/21 05:41 INR 1.70 12/26/21 05:41 APTT 41.5 SECONDS (24.3-36.9) H 12/26/21 05:41 Sodium Cancelled 12/29/21 06:42 Potassium Cancelled 12/29/21 06:42 BUN Cancelled 12/29/21 06:42 Creatinine Cancelled 12/29/21 06:42 Glucose Cancelled 12/29/21 06:42 Phosphorus 3.4 mg/dL (2.5-4.9) 12/23/21 04:20 Magnesium 2.0 mg/dL (1.8-2.4) 12/27/21 06:00 Total Bilirubin 1.7 mg/dL (0.2-1.0) H 12/27/21 06:00 AST 76 U/L (15-37) H 12/27/21 06:00 ALT 36 U/L (12-78) 12/27/21 06:00 Alkaline Phosphatase 148 U/L (45-117) H 12/27/21 06:00 Triglycerides 142 mg/dL (<150) 12/15/21 04:51 Cholesterol 147 mg/dL (<200) 12/15/21 04:51 HDL Cholesterol 25 mg/dL (40-60) L 12/15/21 04:51 Cholesterol/HDL Ratio 5.88 12/15/21 04:51 Lipase 103 U/L (73-393) 12/16/21 04:34 Home Medications: Lactulose [Kristalose] 20 gm PO BID #60 packet 12/29/21 Multivit,Ther Iron,Ca,FA & Min [Centrum Tablet*] 1 tab PO DAILY tab 12/29/21 Pantoprazole [Protonix Tab*] 40 mg PO BIDAC #60 tab 12/29/21 Spironolactone [Aldactone*] 25 mg PO BID #60 tab 12/29/21 Thiamine HCl [Vitamin B-1*] 100 mg PO DAILY 12/29/21 carvediloL [Coreg*] 12.5 mg PO BID #60 tab 12/29/21 chlordiazePOXIDE HCl [Librium*] 10 mg PO SEECOM 10 Days #36 cap 12/29/21 New Medications: Spironolactone [Aldactone*] 25 mg PO BID #60 tab carvediloL [Coreg*] 12.5 mg PO BID #60 tab Lactulose [Kristalose] 20 gm PO BID #60 packet chlordiazePOXIDE HCl [Librium*] 10 mg PO SEECOM 10 Days #36 cap Pantoprazole [Protonix Tab*] 40 mg PO BIDAC #60 tab Physician Discharge Instructions: 1. Please schedule a follow-up with your PCP (Dr. José) in 3-5 days 2. Please schedule a follow-up with your Germ[employer] Testing Manager/[employer] (Dr. Palomo) in 1-2 weeks - You will need to schedule a repeat upper endoscopy in 3-4 weeks Diet: AHA Activity: Ad jasmin Followup: Adrian José MD [Primary Care Provider] - Damian Palomo MD [ASSOCIATE-ACTIVE - CAN ADMIT] - Time spent managing pt's care (in minutes): 25
== END 2021-12-29 08:23 | disposition home or self-care (01) | DRG 432 ==
LOC: ER 22:41 → ERHOLD 12-15 02:14 → 3RD-ICU 12-15 12:11 → 4TH 12-25 12:15
PROVIDERS: ADMIT Internal Medicine; ATTEND Internal Medicine
PROC: 06L38CZ Occlusion of Esophageal Vein with Extraluminal Device, Via Natural or Artificial Opening Endoscopic (ICD-10-PCS; principal; 2021-12-15 11:45)
DX: K70.30 Alcoholic cirrhosis of liver without ascites (principal); I85.11 Secondary esophageal varices with bleeding; D62 Acute posthemorrhagic anemia; K76.6 Portal hypertension; F10.131 Alcohol abuse with withdrawal delirium; K56.0 Paralytic ileus; K70.10 Alcoholic hepatitis without ascites; F17.210 Nicotine dependence, cigarettes, uncomplicated; D69.59 Other secondary thrombocytopenia; K76.82 Hepatic encephalopathy; D64.9 Anemia, unspecified; Z23 Encounter for immunization; Z78.1 Physical restraint status; Z28.310 Unvaccinated for COVID-19; Z79.899 Other long term (current) drug therapy; Z20.822 Contact with and (suspected) exposure to COVID-19
CPT/HCPCS: 36415; 71045; 74018; 74176; 74177; 76700; 80048; 80053; 80061; 80074; 80076; 80320; 82140; 82607; 82746; 83540; 83690; 83735; 83880; 84100; 84132; 84484; 85014; 85018; 85025; 85044; 85049; 85610; 85730; 86850; 86900; 86901; 87811; 93005; 97110; 97112; 97116; 97161; 97164; 97530; 99285; C9113; J0171; J0696; J1940; J2354; J2405; J2550; J2704; J3411; J3430; J7030; J7040; J7050; J7120; J7799; P9047; Q9967